=== PATIENT | male | born 1945 | race Caucasian/White ===

== ENCOUNTER 2017-11-13 00:58 | Inpatient (IN) | payer OTHER, MEDICARE ==
[~2017-11-13] VITALS: Ht 190.5 cm; Wt 93.2 kg
[~2017-11-13 00:58] MED LIST: ALB0.5UD IH; ALBU8.5H8 INH; BUDE10.2 INH; LEVO50TA8 PO; MIDO5TAB PO; POLY17PO2 PO; PRED15SO PO
[2017-11-13] MEDS ORDERED: ipratropium/albuterol 3ml nebule NEB ONE (01:00)
[2017-11-13] MEDS ORDERED: methylPREDNISolone sod succ 125mg/2ml vial IV ONE (01:00)
[2017-11-13] MEDS ORDERED: magnesium 2GM in 50ml NS 50 ML IV ONE (01:00)
[2017-11-13 01:45] LABS: BASOPHILS # (AUTO) 0.1 X10'3 (0-0.2); EOSINOPHILS # (AUTO) 0.1 X10'3 (0-0.9); EOSINOPHILS % (AUTO) 0.7 % (0-6); HEMATOCRIT 43.9 % (42.0-52.0); HEMOGLOBIN 15.1 g/dl (14.0-17.9); LYMPHOCYTES # (AUTO) 0.7 X10'3 (1.1-4.8); MEAN CORPUSCULAR HEMOGLOBIN 33.1 PG (27.0-31.0); MEAN CORPUSCULAR HGB CONC 34.3 % (33.0-36.5); MEAN CORPUSCULAR VOLUME 96.4 FL (78-98); MEAN PLATELET VOLUME 9.9 FL (7.4-10.4); MONOCYTES # (AUTO) 0.2 X10'3 (0-0.9); MONOCYTES % (AUTO) 1.9 % (2-12); NEUTROPHILS # (AUTO) 8.9 X10'3 (1.8-7.7); NEUTROPHILS % (AUTO) 89.4 % (42-75); PLATELET COUNT 244 X10'3 (140-440); RED BLOOD COUNT 4.55 X10'6 (4.70-6.10); RED CELL DISTRIBUTION WIDTH 12.6 % (11.5-14.5)
[2017-11-13 01:57] LABS: PARTIAL THROMBOPLASTIN TIME 23 SECONDS (22-32); PROTHROMBIN TIME 9.9 SECONDS (9.0-12.0)
[2017-11-13 01:59] LABS: ALBUMIN 4.3 G/DL (3.4-5.0); ANION GAP 7 (8-16); BILIRUBIN,TOTAL 0.3 MG/DL (0.1-1.0); BLOOD UREA NITROGEN 23 MG/DL (7-18); CALCIUM 9.8 MG/DL (8.5-10.1); CHLORIDE 96 MMOL/L (99-107); CREATININE 0.96 MG/DL (0.60-1.10); GLUCOSE 79 MG/DL (70-104); MAGNESIUM 1.9 MG/DL (1.5-2.4); POTASSIUM 4.3 MMOL/L (3.5-5.1); SODIUM 138 MMOL/L (135-145); TOTAL CARBON DIOXIDE 34.9 MMOL/L (24-32); TOTAL PROTEIN 8.3 G/DL (6.4-8.2); eGFR 77 ML/MIN
[2017-11-13 02:00] LABS: ALANINE AMINOTRANSFERASE 47 U/L (12-78); ALBUMIN/GLOBULIN RATIO 1.1 (1.1-1.5); ALKALINE PHOSPHATASE 88 IU/L (46-116); ASPARTATE AMINO TRANSFERASE 33 U/L (10-37)
[2017-11-13 03:22] LABS: CLARITY,URINE CLEAR (Clear); COLOR,URINE YELLOW (Yellow); GLUCOSE, URINE NEGATIVE (Neg); KETONES,URINE NEGATIVE (Neg); LEUKOCYTE ESTERASE ,URINE NEGATIVE (Neg); NITRITES, URINE NEGATIVE (Neg); OCCULT BLOOD,URINE SMALL (Neg); PROTEIN,URINE NEGATIVE (Neg); UROBILINOGEN,URINE 0.2 E.U/dL (0.2-1.0)
[2017-11-13 03:23] LABS: UA COLLECTION TYPE CLN CATCH MIDSTREAM
[2017-11-13 03:39] LABS: BACTERIA,URINE NONE SEEN /HPF (Neg); MUCUS STRANDS NONE SEEN /LPF (Neg); RBC,URINE 0-2 /HPF (0-2); SQUAMOUS EPITHELIAL CELL,UR NONE SEEN /LPF (FEW); WBC,URINE NONE SEEN /HPF (0-4)
[2017-11-13] MEDS ORDERED: ondansetron/PF 4mg/2ml inj IV PRN (04:10)
[2017-11-13] MEDS ORDERED: acetaminophen 325mg tablet PO PRN ×2 (04:10)
[2017-11-13] MEDS ORDERED: HYDROcodone/acetaminophen 5mg/325mg tablet PO PRN (04:10)
[2017-11-13] MEDS ORDERED: magnesium hydroxide 30ml (MOM) UD suspension PO PRN (04:10)
[2017-11-13] MEDS ORDERED: metoclopramide 5 mg/ml inj IV PRN (04:10)
[2017-11-13] MEDS ORDERED: acetaminophen 650mg rectal suppository RC PRN (04:10)
[2017-11-13] MEDS ORDERED: morphine 2 MG/ML inj. syringe IV PRN ×2 (04:10)
[2017-11-13] MEDS ORDERED: HYDROcodone/acetaminophen 10/325mg tab PO PRN (04:10)
[2017-11-13] MEDS ORDERED: bisacodyl 10mg suppository rectal RC PRN (04:10)
[2017-11-13] MEDS ORDERED: mag hydrox/Alum hydrox/simeth 30ml oral suspension PO PRN (04:10)
[2017-11-13] MEDS ORDERED: HYDROmorphone inj. 0.5 MG/0.5 ML DISP.SYRIN IV PRN (04:10)
[2017-11-13] MEDS ORDERED: diphenhydrAMINE 50 mg/ml inj IV PRN (04:10)
[2017-11-13] MEDS ORDERED: diphenhydrAMINE 25mg capsule PO PRN (04:10)
[2017-11-13 04:59] LABS: PHOSPHORUS 3.6 MG/DL (2.3-4.5)
[2017-11-13] MEDS: normal saline 1000ml 1,000 ML IV SCH ×2 (05:59→15:45)
[2017-11-13] MEDS: clindamycin 600mg/D5W 50ml 50 ML IV SCH ×2 (06:02→15:45)
[2017-11-13] MEDS: levoFLOXACIN 750MG TABLET PO SCH (06:02)
[2017-11-13] MEDS ORDERED: lactobacillus rhamnosus 10,000 MMU CELLS/CAPSULE PO SCH (07:30)
[2017-11-13] MEDS ORDERED: pantoprazole 40mg Tablet.DR PO SCH (07:30)
[2017-11-13] MEDS ORDERED: levoFLOXACIN-Levaquin 750MG/D5 150 ML IV SCH (08:00)
[2017-11-13] MEDS ORDERED: docusate sod 100mg capsule PO SCH (08:00)
[2017-11-13] MEDS: docusate sodium 100mg/10ml UD cup PO SCH ×2 (08:00→20:00)
[2017-11-13] MEDS ORDERED: clindamycin-Cleocin 900mg/D5W 50 ML IV SCH (08:00)
[2017-11-13 08:05] VITALS: BP 100/62
[2017-11-13 10:00] VITALS: BP 84/51
[2017-11-13] MEDS: heparin, porcine 5000 units/ml vial SQ SCH ×2 (10:26→20:27)
[2017-11-13] MEDS: methylPREDNISolone sod succ 125mg/2ml vial IV SCH ×2 (10:27→20:26)
[2017-11-13] MEDS ORDERED: ASPI-257 (10:32)
[2017-11-13] MEDS ORDERED: albuterol 2.5 MG/3 ML nebule NEB PRN (16:35)
[2017-11-13] MEDS ORDERED: albuterol 2.5 MG/3 ML nebule ONE (16:36)
[2017-11-13 18:00] VITALS: BP 94/53
[2017-11-13] MEDS ORDERED: midodrine tablet 2.5 MG TABLET PEG SCH (19:00)
[2017-11-13] MEDS: lactobacillus rhamnosus 10,000 MMU CELLS/CAPSULE PO SCH (20:25)
[2017-11-13] MEDS ORDERED: temazepam 15mg capsule PO PRN (21:00)
[2017-11-13 22:00] VITALS: BP 151/85
[2017-11-14] MEDS ORDERED: midodrine 5mg tablet PO SCH
[2017-11-14] MEDS: clindamycin 600mg/D5W 50ml 50 ML IV SCH ×2 (00:05→08:36)
[2017-11-14] MEDS: normal saline 1000ml 1,000 ML IV SCH ×3 (00:07→13:35)
[2017-11-14 05:00] VITALS: BP 142/86
[2017-11-14 05:22] LABS: BASOPHILS % (AUTO) 0 % (0-1); EOSINOPHILS # (AUTO) 0.2 X10'3 (0-0.9); EOSINOPHILS % (AUTO) 1.2 % (0-6); HEMATOCRIT 36.3 % (42.0-52.0); HEMOGLOBIN 12.5 g/dl (14.0-17.9); LYMPHOCYTES # (AUTO) 0.7 X10'3 (1.1-4.8); MEAN CORPUSCULAR HEMOGLOBIN 33.5 PG (27.0-31.0); MEAN CORPUSCULAR HGB CONC 34.5 % (33.0-36.5); MEAN CORPUSCULAR VOLUME 97.1 FL (78-98); MEAN PLATELET VOLUME 9.6 FL (7.4-10.4); MONOCYTES # (AUTO) 0.3 X10'3 (0-0.9); MONOCYTES % (AUTO) 1.5 % (2-12); NEUTROPHILS # (AUTO) 15.2 X10'3 (1.8-7.7); NEUTROPHILS % (AUTO) 93.3 % (42-75); PLATELET COUNT 216 X10'3 (140-440); RED BLOOD COUNT 3.73 X10'6 (4.70-6.10); RED CELL DISTRIBUTION WIDTH 12.8 % (11.5-14.5); WHITE BLOOD COUNT 16.3 X10'3 (4.5-11.0)
[2017-11-14 06:44] LABS: ALANINE AMINOTRANSFERASE 36 U/L (12-78); ALBUMIN 3.4 G/DL (3.4-5.0); ALBUMIN/GLOBULIN RATIO 0.9 (1.1-1.5); ALKALINE PHOSPHATASE 65 IU/L (46-116); ANION GAP 7 (8-16); ASPARTATE AMINO TRANSFERASE 25 U/L (10-37); BILIRUBIN,TOTAL 0.3 MG/DL (0.1-1.0); BLOOD UREA NITROGEN 28 MG/DL (7-18); BUN/CREATININE RATIO 28.6 (5.4-32.0); CHLORIDE 99 MMOL/L (99-107); CREATININE 0.98 MG/DL (0.60-1.10); GLUCOSE 129 MG/DL (70-104); MAGNESIUM 2.2 MG/DL (1.5-2.4); PHOSPHORUS 3.1 MG/DL (2.3-4.5); POTASSIUM 4.7 MMOL/L (3.5-5.1); SODIUM 138 MMOL/L (135-145); TOTAL CARBON DIOXIDE 31.9 MMOL/L (24-32); eGFR 75 ML/MIN
[2017-11-14] MEDS: docusate sodium 100mg/10ml UD cup PO SCH ×2 (08:00→19:53)
[2017-11-14] MEDS: levoTHYROXINE 25mcg tablet PO SCH (08:31)
[2017-11-14] MEDS: methylPREDNISolone sod succ 125mg/2ml vial IV SCH (08:32)
[2017-11-14] MEDS: midodrine 5mg tablet PEG SCH ×2 (08:32→19:43)
[2017-11-14] MEDS: lactobacillus rhamnosus 10,000 MMU CELLS/CAPSULE PO SCH ×2 (08:32→19:43)
[2017-11-14] MEDS: pantoprazole 40 MG vial IV SCH (08:38)
[2017-11-14] MEDS: heparin, porcine 5000 units/ml vial SQ SCH ×2 (08:39→19:47)
[2017-11-14 10:00] VITALS: BP 124/69
[2017-11-14] MEDS ORDERED: midodrine 5mg tablet PO ONE (13:20)
[2017-11-14] MEDS: levoFLOXACIN 750MG TABLET PO SCH (13:21)
[2017-11-14 18:00] VITALS: BP 143/85
[2017-11-14 22:00] VITALS: BP 154/90
[2017-11-15 05:24] LABS: BASOPHILS % (AUTO) 0 % (0-1); EOSINOPHILS % (AUTO) 0 % (0-6); HEMATOCRIT 34.3 % (42.0-52.0); HEMOGLOBIN 11.9 g/dl (14.0-17.9); LYMPHOCYTES # (AUTO) 0.6 X10'3 (1.1-4.8); LYMPHOCYTES % (AUTO) 3.6 % (21-51); MEAN CORPUSCULAR HEMOGLOBIN 33.4 PG (27.0-31.0); MEAN CORPUSCULAR HGB CONC 34.6 % (33.0-36.5); MEAN CORPUSCULAR VOLUME 96.6 FL (78-98); MEAN PLATELET VOLUME 9.8 FL (7.4-10.4); MONOCYTES # (AUTO) 0.7 X10'3 (0-0.9); MONOCYTES % (AUTO) 4.2 % (2-12); NEUTROPHILS # (AUTO) 15.7 X10'3 (1.8-7.7); NEUTROPHILS % (AUTO) 92.2 % (42-75); PLATELET COUNT 194 X10'3 (140-440); RED BLOOD COUNT 3.55 X10'6 (4.70-6.10); RED CELL DISTRIBUTION WIDTH 12.9 % (11.5-14.5)
[2017-11-15 06:00] VITALS: BP 149/85
[2017-11-15 06:03] LABS: ALANINE AMINOTRANSFERASE 35 U/L (12-78); ALBUMIN/GLOBULIN RATIO 0.9 (1.1-1.5); ALKALINE PHOSPHATASE 61 IU/L (46-116); ANION GAP 4 (8-16); ASPARTATE AMINO TRANSFERASE 27 U/L (10-37); BILIRUBIN,TOTAL 0.2 MG/DL (0.1-1.0); BLOOD UREA NITROGEN 28 MG/DL (7-18); BUN/CREATININE RATIO 30.4 (5.4-32.0); CALCIUM 9.1 MG/DL (8.5-10.1); CHLORIDE 103 MMOL/L (99-107); CREATININE 0.92 MG/DL (0.60-1.10); GLUCOSE 109 MG/DL (70-104); POTASSIUM 4.8 MMOL/L (3.5-5.1); SODIUM 141 MMOL/L (135-145); TOTAL CARBON DIOXIDE 33.6 MMOL/L (24-32); TOTAL PROTEIN 6.4 G/DL (6.4-8.2); eGFR 81 ML/MIN
[2017-11-15] MEDS: docusate sodium 100mg/10ml UD cup PO SCH ×2 (08:00→20:00)
[2017-11-15] MEDS ORDERED: prednisoLONE 15mg/5ml oral solution 5ml cup PO SCH (08:00)
[2017-11-15] MEDS: midodrine 5mg tablet PEG SCH ×3 (08:17→17:14)
[2017-11-15] MEDS: levoFLOXACIN 750MG TABLET PO SCH (08:18)
[2017-11-15] MEDS: lactobacillus rhamnosus 10,000 MMU CELLS/CAPSULE PO SCH ×2 (08:18→19:00)
[2017-11-15] MEDS: heparin, porcine 5000 units/ml vial SQ SCH (08:18)
[2017-11-15] MEDS: pantoprazole 40 MG vial IV SCH (08:18)
[2017-11-15] MEDS: levoTHYROXINE 25mcg tablet PO SCH (08:18)
[2017-11-15] MEDS: normal saline 1000ml 1,000 ML IV SCH (08:21)
[2017-11-15 10:00] VITALS: BP 134/85
[2017-11-15 19:00] VITALS: BP 170/104
[2017-11-15] MEDS ORDERED: LEVO750T21 PO (19:49)
== END 2017-11-15 20:30 | disposition home or self-care (01) | DRG 177 ==
LOC: ER 00:58 → ED HOLD 04:07 → ORTHO 4S 08:06
PROVIDERS: ADMIT Family Medicine; ATTEND Internal Medicine
DX: J69.0 Pneumonitis due to inhalation of food and vomit (principal); J96.21 Acute and chronic respiratory failure with hypoxia; I95.9 Hypotension, unspecified; Z99.81 Dependence on supplemental oxygen; R13.10 Dysphagia, unspecified; Z93.1 Gastrostomy status; J44.1 Chronic obstructive pulmonary disease with (acute) exacerbation; E86.0 Dehydration; E03.9 Hypothyroidism, unspecified; Z79.51 Long term (current) use of inhaled steroids; Z79.82 Long term (current) use of aspirin; Z79.899 Other long term (current) drug therapy; Z85.01 Personal history of malignant neoplasm of esophagus; Z87.891 Personal history of nicotine dependence; Z80.9 Family history of malignant neoplasm, unspecified; Z81.8 Family history of other mental and behavioral disorders; Z82.49 Family history of ischemic heart disease and other diseases of the circulatory system
CPT/HCPCS: 36415; 71045; 80053; 81001; 83605; 83735; 83880; 84100; 84145; 85025; 85610; 85730; 87040; 87070; 93005; 94640; 94760; 96365; 96375; 99285; C9113; J1644; J2930; J3475; J3490; J7030; J7042; J7510

== ENCOUNTER 2018-03-18 08:14 | Inpatient (IN) | payer MEDICARE, OTHER ==
[~2018-03-18] VITALS: Ht 190.5 cm; Wt 92.5 kg
[~2018-03-18 08:14] MED LIST changes: +ASPI-257; +LEVO750T21 PO; -PRED15SO PO; +PRED15SO23 PO
[2018-03-18] MEDS ORDERED: morphine 4 MG/ML inj SYRINge IV ONE (08:35)
[2018-03-18] MEDS ORDERED: normal saline 1000ML IV soln IVB ONE (08:35)
[2018-03-18 08:43] LABS: BASOPHILS # (AUTO) 0.1 X10'3 (0-0.2); BASOPHILS % (AUTO) 0.8 % (0-1); EOSINOPHILS % (AUTO) 0.2 % (0-6); HEMATOCRIT 29.7 % (42.0-52.0); HEMOGLOBIN 10.1 g/dl (14.0-17.9); LYMPHOCYTES # (AUTO) 1.1 X10'3 (1.1-4.8); LYMPHOCYTES % (AUTO) 14.2 % (21-51); MEAN CORPUSCULAR HEMOGLOBIN 32.8 PG (27.0-31.0); MEAN CORPUSCULAR HGB CONC 33.9 % (33.0-36.5); MEAN CORPUSCULAR VOLUME 96.8 FL (78-98); MEAN PLATELET VOLUME 9.6 FL (7.4-10.4); MONOCYTES # (AUTO) 0.9 X10'3 (0-0.9); MONOCYTES % (AUTO) 11.2 % (2-12); NEUTROPHILS # (AUTO) 5.9 X10'3 (1.8-7.7); NEUTROPHILS % (AUTO) 73.6 % (42-75); PLATELET COUNT 199 X10'3 (140-440); RED BLOOD COUNT 3.07 X10'6 (4.70-6.10); RED CELL DISTRIBUTION WIDTH 13.6 % (11.5-14.5); WHITE BLOOD COUNT 8.1 X10'3 (4.5-11.0)
[2018-03-18 08:54] LABS: PARTIAL THROMBOPLASTIN TIME 25 SECONDS (22-32); PROTHROMBIN TIME 10.3 SECONDS (9.0-12.0)
[2018-03-18 08:59] LABS: ALANINE AMINOTRANSFERASE 31 U/L (12-78); ALBUMIN 2.9 G/DL (3.4-5.0); ALBUMIN/GLOBULIN RATIO 0.9 (1.1-1.5); ALKALINE PHOSPHATASE 63 IU/L (46-116); ANION GAP 4 (8-16); ASPARTATE AMINO TRANSFERASE 22 U/L (10-37); BILIRUBIN,TOTAL 0.2 MG/DL (0.1-1.0); BLOOD UREA NITROGEN 41 MG/DL (7-18); BUN/CREATININE RATIO 56.9 (5.4-32.0); CALCIUM 8.2 MG/DL (8.5-10.1); CHLORIDE 101 MMOL/L (99-107); CREATININE 0.72 MG/DL (0.60-1.10); GLUCOSE 92 MG/DL (70-104); POTASSIUM 4.3 MMOL/L (3.5-5.1); SODIUM 140 MMOL/L (135-145); TOTAL CARBON DIOXIDE 35.1 MMOL/L (24-32); TOTAL PROTEIN 6.1 G/DL (6.4-8.2); eGFR > 90 ML/MIN
[2018-03-18] MEDS ORDERED: levoFLOXACIN-Levaquin 750MG/D5 150 ML IV ONE (09:55)
[2018-03-18] MEDS ORDERED: NUTR250L26 PO (10:37)
[2018-03-18] MEDS ORDERED: iohexol 300mg/ml 100ml inj. ONE (11:04)
[2018-03-18] MEDS ORDERED: magnesium hydroxide 30ml (MOM) UD suspension PO PRN (11:10)
[2018-03-18] MEDS ORDERED: acetaminophen 325mg tablet PO PRN (11:10)
[2018-03-18] MEDS ORDERED: potassium Cl 40MEQ/NS 500ml 500 ML IV PRN ×2 (11:10)
[2018-03-18] MEDS ORDERED: mag hydrox/Alum hydrox/simeth 30ml oral suspension PO PRN (11:10)
[2018-03-18] MEDS ORDERED: magnesium 4gm in 100ml NS 100 ML IV PRN (11:10)
[2018-03-18] MEDS ORDERED: magnesium Cl slow-release 64mg tablet PO PRN (11:10)
[2018-03-18] MEDS ORDERED: ondansetron/PF 4mg/2ml inj IV PRN (11:10)
[2018-03-18] MEDS ORDERED: magnesium/D5W IVPB 50 ML IV PRN (11:10)
[2018-03-18] MEDS ORDERED: potassium Cl 20 mEq SR tablet PO PRN ×2 (11:10)
[2018-03-18] MEDS ORDERED: levoFLOXACIN-Levaquin 750MG/D5 150 ML IV SCH (11:15)
[2018-03-18] MEDS ORDERED: non-formulary drug (Albuterol Sulfate (Proair Hfa) 2 PUFFS) INH SCH (11:20)
[2018-03-18] MEDS ORDERED: albuterol 2.5 MG/3 ML nebule NEB PRN (11:20)
[2018-03-18] MEDS: K and/or MAG REPLACEMENT MC SCH (11:25)
[2018-03-18] MEDS ORDERED: midodrine 5mg tablet PO ONE (11:45)
[2018-03-18] MEDS: prednisoLONE 15mg/5ml oral solution 5ml cup PO SCH (11:58)
[2018-03-18] MEDS: normal saline 1000ml 1,000 ML IV SCH ×2 (12:21→22:06)
[2018-03-18 13:00] VITALS: BP 125/84
[2018-03-18] MEDS: metroNIDAZOLE-Flagyl 500mg/NS 100 ML IV SCH ×3 (14:08→23:53)
[2018-03-18] MEDS: albuterol 2.5 MG/3 ML nebule NEB SCH ×2 (15:04→19:28)
[2018-03-18] MEDS: midodrine 5mg tablet PO SCH ×2 (16:17→23:53)
[2018-03-18] MEDS: budesonide 0.5mg/2ml UD nebule IH SCH (19:31)
[2018-03-18] MEDS: heparin, porcine 5000 units/ml vial SQ SCH (19:51)
[2018-03-18 20:00] VITALS: BP_SYST 128; BP_SYST 129; BP_SYST 84; BP_SYST 96; BP_DIAS 46; BP_DIAS 60; BP_DIAS 70; BP_DIAS 77
[2018-03-19] VITALS (7 sets, daily range): BP systolic 64–133; BP diastolic 31–87
[2018-03-19 04:32] LABS: BASOPHILS # (AUTO) 0.1 X10'3 (0-0.2); BASOPHILS % (AUTO) 0.7 % (0-1); EOSINOPHILS # (AUTO) 0.1 X10'3 (0-0.9); HEMATOCRIT 23.2 % (42.0-52.0); HEMOGLOBIN 7.9 g/dl (14.0-17.9); LYMPHOCYTES % (AUTO) 12.9 % (21-51); MEAN CORPUSCULAR HEMOGLOBIN 32.9 PG (27.0-31.0); MEAN CORPUSCULAR HGB CONC 33.9 % (33.0-36.5); MEAN CORPUSCULAR VOLUME 97.1 FL (78-98); MEAN PLATELET VOLUME 9.4 FL (7.4-10.4); MONOCYTES # (AUTO) 0.7 X10'3 (0-0.9); NEUTROPHILS # (AUTO) 5.6 X10'3 (1.8-7.7); NEUTROPHILS % (AUTO) 75.4 % (42-75); PLATELET COUNT 186 X10'3 (140-440); RED BLOOD COUNT 2.39 X10'6 (4.70-6.10); RED CELL DISTRIBUTION WIDTH 13.8 % (11.5-14.5); WHITE BLOOD COUNT 7.4 X10'3 (4.5-11.0)
[2018-03-19 04:52] LABS: ANION GAP 1 (8-16); BILIRUBIN,TOTAL 0.1 MG/DL (0.1-1.0); BLOOD UREA NITROGEN 34 MG/DL (7-18); BUN/CREATININE RATIO 50.7 (5.4-32.0); CALCIUM 8.3 MG/DL (8.5-10.1); CHLORIDE 100 MMOL/L (99-107); CREATININE 0.67 MG/DL (0.60-1.10); GLUCOSE 98 MG/DL (70-104); MAGNESIUM 1.8 MG/DL (1.5-2.4); POTASSIUM 4.4 MMOL/L (3.5-5.1); SODIUM 136 MMOL/L (135-145); TOTAL CARBON DIOXIDE 34.7 MMOL/L (24-32); TOTAL PROTEIN 5.5 G/DL (6.4-8.2); eGFR > 90 ML/MIN
[2018-03-19 04:53] LABS: ALANINE AMINOTRANSFERASE 29 U/L (12-78); ALBUMIN 2.6 G/DL (3.4-5.0); ALBUMIN/GLOBULIN RATIO 0.9 (1.1-1.5); ALKALINE PHOSPHATASE 60 IU/L (46-116); ASPARTATE AMINO TRANSFERASE 18 U/L (10-37); PREALBUMIN 19.2 MG/DL (19-36)
[2018-03-19] MEDS: budesonide 0.5mg/2ml UD nebule IH SCH ×2 (07:23→19:59)
[2018-03-19] MEDS: albuterol 2.5 MG/3 ML nebule NEB SCH ×4 (07:24→19:59)
[2018-03-19] MEDS: midodrine 5mg tablet PO SCH ×3 (07:46→23:35)
[2018-03-19] MEDS: levoTHYROXINE 25mcg tablet PO SCH (07:46)
[2018-03-19] MEDS: metroNIDAZOLE-Flagyl 500mg/NS 100 ML IV SCH ×3 (07:50→23:35)
[2018-03-19] MEDS: heparin, porcine 5000 units/ml vial SQ SCH ×2 (07:59→19:48)
[2018-03-19] MEDS: K and/or MAG REPLACEMENT MC SCH (08:00)
[2018-03-19] MEDS: prednisoLONE 15mg/5ml oral solution 5ml cup PO SCH (08:04)
[2018-03-19] MEDS: levoFLOXACIN-Levaquin 750MG/D5 150 ML IV SCH (09:16)
[2018-03-19] MEDS: normal saline 1000ml 1,000 ML IV SCH (16:25)
[2018-03-20] VITALS (14 sets, daily range): BP systolic 63–139; BP diastolic 30–100
[2018-03-20 05:12] LABS: BASOPHILS # (AUTO) 0.1 X10'3 (0-0.2); BASOPHILS % (AUTO) 0.9 % (0-1); EOSINOPHILS % (AUTO) 0 % (0-6); LYMPHOCYTES # (AUTO) 1.3 X10'3 (1.1-4.8); LYMPHOCYTES % (AUTO) 18.1 % (21-51); MEAN CORPUSCULAR HEMOGLOBIN 32.5 PG (27.0-31.0); MEAN CORPUSCULAR HGB CONC 33.6 % (33.0-36.5); MEAN CORPUSCULAR VOLUME 96.8 FL (78-98); MEAN PLATELET VOLUME 9.4 FL (7.4-10.4); MONOCYTES # (AUTO) 0.7 X10'3 (0-0.9); MONOCYTES % (AUTO) 9.4 % (2-12); NEUTROPHILS # (AUTO) 5.2 X10'3 (1.8-7.7); NEUTROPHILS % (AUTO) 71.6 % (42-75); PLATELET COUNT 171 X10'3 (140-440); RED BLOOD COUNT 2.06 X10'6 (4.70-6.10); RED CELL DISTRIBUTION WIDTH 14.2 % (11.5-14.5); WHITE BLOOD COUNT 7.3 X10'3 (4.5-11.0)
[2018-03-20 05:38] LABS: HEMATOCRIT 19.9 % (42.0-52.0); HEMOGLOBIN 6.7 g/dl (14.0-17.9)
[2018-03-20 06:11] LABS: ALANINE AMINOTRANSFERASE 28 U/L (12-78); ALBUMIN 2.6 G/DL (3.4-5.0); ALKALINE PHOSPHATASE 58 IU/L (46-116); ANION GAP 2 (8-16); ASPARTATE AMINO TRANSFERASE 19 U/L (10-37); BILIRUBIN,TOTAL 0.1 MG/DL (0.1-1.0); BLOOD UREA NITROGEN 24 MG/DL (7-18); BUN/CREATININE RATIO 31.6 (5.4-32.0); CALCIUM 8.4 MG/DL (8.5-10.1); CHLORIDE 98 MMOL/L (99-107); CREATININE 0.76 MG/DL (0.60-1.10); GLUCOSE 89 MG/DL (70-104); MAGNESIUM 1.5 MG/DL (1.5-2.4); POTASSIUM 4.3 MMOL/L (3.5-5.1); SODIUM 136 MMOL/L (135-145); TOTAL CARBON DIOXIDE 35.6 MMOL/L (24-32); TOTAL PROTEIN 5.3 G/DL (6.4-8.2); eGFR > 90 ML/MIN
[2018-03-20] MEDS: budesonide 0.5mg/2ml UD nebule IH SCH ×2 (07:28→19:50)
[2018-03-20] MEDS: albuterol 2.5 MG/3 ML nebule NEB SCH ×4 (07:28→19:50)
[2018-03-20] MEDS: normal saline 1000ml 1,000 ML IV SCH ×2 (07:42→23:56)
[2018-03-20] MEDS: metroNIDAZOLE-Flagyl 500mg/NS 100 ML IV SCH ×3 (07:42→23:55)
[2018-03-20] MEDS: K and/or MAG REPLACEMENT MC SCH (08:00)
[2018-03-20] MEDS ORDERED: pantoprazole 40 MG vial IV SCH (08:00)
[2018-03-20] MEDS: heparin, porcine 5000 units/ml vial SQ SCH ×2 (08:00→19:25)
[2018-03-20] MEDS: levoTHYROXINE 25mcg tablet PO SCH (08:40)
[2018-03-20] MEDS: midodrine 5mg tablet PO SCH ×3 (08:41→23:55)
[2018-03-20] MEDS: prednisoLONE 15mg/5ml oral solution 5ml cup PO SCH (08:43)
[2018-03-20] MEDS: levoFLOXACIN-Levaquin 750MG/D5 150 ML IV SCH (08:56)
[2018-03-20 10:08] LABS: OCCULT BLOOD STOOL POSITIVE (Neg)
[2018-03-20] MEDS: pantoprazole 40MG/NS 100ML BAG 100 ML IV SCH ×3 (11:39→20:31)
[2018-03-20 13:35] LABS: BASOPHILS % (AUTO) 0.5 % (0-1); EOSINOPHILS % (AUTO) 0 % (0-6); LYMPHOCYTES # (AUTO) 0.6 X10'3 (1.1-4.8); LYMPHOCYTES % (AUTO) 7.5 % (21-51); MEAN CORPUSCULAR HEMOGLOBIN 32.8 PG (27.0-31.0); MEAN CORPUSCULAR HGB CONC 33.7 % (33.0-36.5); MEAN CORPUSCULAR VOLUME 97.4 FL (78-98); MEAN PLATELET VOLUME 9.3 FL (7.4-10.4); MONOCYTES # (AUTO) 0.7 X10'3 (0-0.9); MONOCYTES % (AUTO) 9.4 % (2-12); NEUTROPHILS # (AUTO) 6.2 X10'3 (1.8-7.7); NEUTROPHILS % (AUTO) 82.6 % (42-75); PLATELET COUNT 184 X10'3 (140-440); RED CELL DISTRIBUTION WIDTH 14.2 % (11.5-14.5); WHITE BLOOD COUNT 7.5 X10'3 (4.5-11.0)
[2018-03-20 13:40] LABS: HEMATOCRIT 20.5 % (42.0-52.0); HEMOGLOBIN 6.9 g/dl (14.0-17.9)
[2018-03-20] MEDS: lactobacillus rhamnosus 10,000 MMU CELLS/CAPSULE PO SCH (19:23)
[2018-03-20 21:19] LABS: BASOPHILS % (AUTO) 0.3 % (0-1); EOSINOPHILS % (AUTO) 0 % (0-6); HEMATOCRIT 25.4 % (42.0-52.0); HEMOGLOBIN 8.8 g/dl (14.0-17.9); LYMPHOCYTES # (AUTO) 0.8 X10'3 (1.1-4.8); LYMPHOCYTES % (AUTO) 10.7 % (21-51); MEAN CORPUSCULAR HEMOGLOBIN 32.7 PG (27.0-31.0); MEAN CORPUSCULAR HGB CONC 34.5 % (33.0-36.5); MEAN PLATELET VOLUME 9.2 FL (7.4-10.4); MONOCYTES # (AUTO) 0.6 X10'3 (0-0.9); MONOCYTES % (AUTO) 8.1 % (2-12); NEUTROPHILS # (AUTO) 6.1 X10'3 (1.8-7.7); NEUTROPHILS % (AUTO) 80.9 % (42-75); PLATELET COUNT 171 X10'3 (140-440); RED BLOOD COUNT 2.68 X10'6 (4.70-6.10); RED CELL DISTRIBUTION WIDTH 14.1 % (11.5-14.5); WHITE BLOOD COUNT 7.6 X10'3 (4.5-11.0)
[2018-03-21] VITALS (16 sets, daily range): BP systolic 79–140; BP diastolic 46–88
[2018-03-21] MEDS: pantoprazole 40MG/NS 100ML BAG 100 ML IV SCH ×5 (01:43→21:41)
[2018-03-21 05:23] LABS: BASOPHILS % (AUTO) 0.7 % (0-1); EOSINOPHILS % (AUTO) 0 % (0-6); HEMATOCRIT 23.5 % (42.0-52.0); LYMPHOCYTES # (AUTO) 0.8 X10'3 (1.1-4.8); LYMPHOCYTES % (AUTO) 14.4 % (21-51); MEAN CORPUSCULAR HEMOGLOBIN 32.5 PG (27.0-31.0); MEAN CORPUSCULAR HGB CONC 34.3 % (33.0-36.5); MEAN CORPUSCULAR VOLUME 94.9 FL (78-98); MEAN PLATELET VOLUME 9.3 FL (7.4-10.4); MONOCYTES # (AUTO) 0.6 X10'3 (0-0.9); MONOCYTES % (AUTO) 10.7 % (2-12); NEUTROPHILS # (AUTO) 4.2 X10'3 (1.8-7.7); NEUTROPHILS % (AUTO) 74.2 % (42-75); PLATELET COUNT 154 X10'3 (140-440); RED BLOOD COUNT 2.47 X10'6 (4.70-6.10); RED CELL DISTRIBUTION WIDTH 14.9 % (11.5-14.5); WHITE BLOOD COUNT 5.6 X10'3 (4.5-11.0)
[2018-03-21 05:50] LABS: ALANINE AMINOTRANSFERASE 24 U/L (12-78); ALBUMIN 2.4 G/DL (3.4-5.0); ALKALINE PHOSPHATASE 54 IU/L (46-116); ANION GAP 1 (8-16); ASPARTATE AMINO TRANSFERASE 18 U/L (10-37); BILIRUBIN,TOTAL 0.2 MG/DL (0.1-1.0); BLOOD UREA NITROGEN 18 MG/DL (7-18); BUN/CREATININE RATIO 21.7 (5.4-32.0); CHLORIDE 99 MMOL/L (99-107); CREATININE 0.83 MG/DL (0.60-1.10); GLUCOSE 85 MG/DL (70-104); MAGNESIUM 1.7 MG/DL (1.5-2.4); POTASSIUM 4.3 MMOL/L (3.5-5.1); SODIUM 136 MMOL/L (135-145); TOTAL CARBON DIOXIDE 35.9 MMOL/L (24-32); TOTAL PROTEIN 4.9 G/DL (6.4-8.2); eGFR > 90 ML/MIN
[2018-03-21 05:58] LABS: CALCIUM 8.3 MG/DL (8.5-10.1)
[2018-03-21] MEDS: heparin, porcine 5000 units/ml vial SQ SCH ×2 (06:20→20:00)
[2018-03-21] MEDS: K and/or MAG REPLACEMENT MC SCH (07:24)
[2018-03-21] MEDS: normal saline 1000ml 1,000 ML IV SCH (07:26)
[2018-03-21] MEDS: metroNIDAZOLE-Flagyl 500mg/NS 100 ML IV SCH (07:29)
[2018-03-21] MEDS: budesonide 0.5mg/2ml UD nebule IH SCH ×2 (07:54→19:46)
[2018-03-21] MEDS: albuterol 2.5 MG/3 ML nebule NEB SCH ×4 (07:54→19:46)
[2018-03-21] MEDS: midodrine 5mg tablet PO SCH ×3 (08:00→23:41)
[2018-03-21] MEDS: lactobacillus rhamnosus 10,000 MMU CELLS/CAPSULE PO SCH ×2 (08:00→20:01)
[2018-03-21] MEDS ORDERED: MIDAZolam 5mg/5ml vial ONE (08:30)
[2018-03-21] MEDS ORDERED: LIDOcaine Viscous 15ml cup ONE (08:30)
[2018-03-21] MEDS ORDERED: fentaNYL/PF 50MCG/1 ML 2ML syringe ONE (08:30)
[2018-03-21] MEDS ORDERED: epiNEPHrine 0.1mg/ml 10ml syringe ONE (09:33)
[2018-03-21] MEDS: prednisoLONE 15mg/5ml oral solution 5ml cup PO SCH (12:27)
[2018-03-21] MEDS: levoTHYROXINE 25mcg tablet PO SCH (12:28)
[2018-03-21] MEDS: levoFLOXACIN-Levaquin 750MG/D5 150 ML IV SCH (12:31)
[2018-03-21 14:04] LABS: BASOPHILS % (AUTO) 0.3 % (0-1); EOSINOPHILS % (AUTO) 0.2 % (0-6); HEMATOCRIT 25.8 % (42.0-52.0); HEMOGLOBIN 8.7 g/dl (14.0-17.9); LYMPHOCYTES # (AUTO) 0.5 X10'3 (1.1-4.8); LYMPHOCYTES % (AUTO) 7.3 % (21-51); MEAN CORPUSCULAR HEMOGLOBIN 32.6 PG (27.0-31.0); MEAN CORPUSCULAR HGB CONC 33.6 % (33.0-36.5); MEAN CORPUSCULAR VOLUME 96.9 FL (78-98); MEAN PLATELET VOLUME 9.2 FL (7.4-10.4); MONOCYTES # (AUTO) 0.6 X10'3 (0-0.9); MONOCYTES % (AUTO) 8.9 % (2-12); NEUTROPHILS # (AUTO) 5.6 X10'3 (1.8-7.7); NEUTROPHILS % (AUTO) 83.3 % (42-75); PLATELET COUNT 161 X10'3 (140-440); RED BLOOD COUNT 2.66 X10'6 (4.70-6.10); RED CELL DISTRIBUTION WIDTH 14.5 % (11.5-14.5); WHITE BLOOD COUNT 6.8 X10'3 (4.5-11.0)
[2018-03-21 22:18] LABS: BASOPHILS % (AUTO) 0.4 % (0-1); EOSINOPHILS % (AUTO) 0 % (0-6); HEMATOCRIT 26.7 % (42.0-52.0); LYMPHOCYTES # (AUTO) 0.6 X10'3 (1.1-4.8); LYMPHOCYTES % (AUTO) 9.7 % (21-51); MEAN CORPUSCULAR HEMOGLOBIN 32.3 PG (27.0-31.0); MEAN CORPUSCULAR HGB CONC 33.7 % (33.0-36.5); MEAN CORPUSCULAR VOLUME 95.8 FL (78-98); MEAN PLATELET VOLUME 9.4 FL (7.4-10.4); MONOCYTES # (AUTO) 0.3 X10'3 (0-0.9); MONOCYTES % (AUTO) 5.6 % (2-12); NEUTROPHILS # (AUTO) 5.2 X10'3 (1.8-7.7); NEUTROPHILS % (AUTO) 84.3 % (42-75); PLATELET COUNT 202 X10'3 (140-440); RED BLOOD COUNT 2.79 X10'6 (4.70-6.10); RED CELL DISTRIBUTION WIDTH 14.5 % (11.5-14.5); WHITE BLOOD COUNT 6.2 X10'3 (4.5-11.0)
[2018-03-22] MEDS: pantoprazole 40MG/NS 100ML BAG 100 ML IV SCH ×5 (01:00→23:04)
[2018-03-22] MEDS: normal saline 1000ml 1,000 ML IV SCH ×2 (01:29→15:21)
[2018-03-22 05:23] LABS: BASOPHILS % (AUTO) 0.3 % (0-1); EOSINOPHILS % (AUTO) 0.1 % (0-6); HEMATOCRIT 25.6 % (42.0-52.0); HEMOGLOBIN 8.6 g/dl (14.0-17.9); LYMPHOCYTES # (AUTO) 0.8 X10'3 (1.1-4.8); LYMPHOCYTES % (AUTO) 14.3 % (21-51); MEAN CORPUSCULAR HEMOGLOBIN 32.9 PG (27.0-31.0); MEAN CORPUSCULAR HGB CONC 33.8 % (33.0-36.5); MEAN CORPUSCULAR VOLUME 97.2 FL (78-98); MONOCYTES # (AUTO) 0.7 X10'3 (0-0.9); MONOCYTES % (AUTO) 11.2 % (2-12); NEUTROPHILS # (AUTO) 4.4 X10'3 (1.8-7.7); NEUTROPHILS % (AUTO) 74.1 % (42-75); PLATELET COUNT 194 X10'3 (140-440); RED BLOOD COUNT 2.63 X10'6 (4.70-6.10); RED CELL DISTRIBUTION WIDTH 14.4 % (11.5-14.5); WHITE BLOOD COUNT 5.9 X10'3 (4.5-11.0)
[2018-03-22 05:50] LABS: ALANINE AMINOTRANSFERASE 27 U/L (12-78); ALBUMIN 2.6 G/DL (3.4-5.0); ALKALINE PHOSPHATASE 55 IU/L (46-116); ANION GAP 4 (8-16); ASPARTATE AMINO TRANSFERASE 24 U/L (10-37); BILIRUBIN,TOTAL 0.2 MG/DL (0.1-1.0); BLOOD UREA NITROGEN 13 MG/DL (7-18); BUN/CREATININE RATIO 16.5 (5.4-32.0); CALCIUM 8.3 MG/DL (8.5-10.1); CHLORIDE 99 MMOL/L (99-107); CREATININE 0.79 MG/DL (0.60-1.10); GLUCOSE 86 MG/DL (70-104); MAGNESIUM 1.8 MG/DL (1.5-2.4); PREALBUMIN 19.4 MG/DL (19-36); SODIUM 137 MMOL/L (135-145); TOTAL CARBON DIOXIDE 33.7 MMOL/L (24-32); TOTAL PROTEIN 5.3 G/DL (6.4-8.2); eGFR > 90 ML/MIN
[2018-03-22] MEDS: K and/or MAG REPLACEMENT MC SCH (06:30)
[2018-03-22] MEDS: heparin, porcine 5000 units/ml vial SQ SCH ×2 (06:32→19:32)
[2018-03-22 06:39] VITALS: BP 96/64
[2018-03-22] MEDS: levoFLOXACIN-Levaquin 750MG/D5 150 ML IV SCH (07:08)
[2018-03-22] MEDS: lactobacillus rhamnosus 10,000 MMU CELLS/CAPSULE PO SCH ×2 (07:09→19:30)
[2018-03-22] MEDS: midodrine 5mg tablet PO SCH ×3 (07:09→19:30)
[2018-03-22] MEDS: prednisoLONE 15mg/5ml oral solution 5ml cup PO SCH (07:09)
[2018-03-22] MEDS: levoTHYROXINE 25mcg tablet PO SCH (07:09)
[2018-03-22] MEDS: albuterol 2.5 MG/3 ML nebule NEB SCH ×4 (08:22→19:00)
[2018-03-22] MEDS: budesonide 0.5mg/2ml UD nebule IH SCH ×2 (08:23→20:00)
[2018-03-22 10:08] VITALS: BP_SYST 65; BP_SYST 82; BP_SYST 96; BP_DIAS 40; BP_DIAS 50; BP_DIAS 62
[2018-03-22 11:44] VITALS: BP 92/57
[2018-03-22 13:12] LABS: BASOPHILS % (AUTO) 0.2 % (0-1); EOSINOPHILS % (AUTO) 0 % (0-6); HEMATOCRIT 28.4 % (42.0-52.0); HEMOGLOBIN 9.6 g/dl (14.0-17.9); LYMPHOCYTES # (AUTO) 0.9 X10'3 (1.1-4.8); LYMPHOCYTES % (AUTO) 12.3 % (21-51); MEAN CORPUSCULAR HEMOGLOBIN 32.7 PG (27.0-31.0); MEAN CORPUSCULAR HGB CONC 33.7 % (33.0-36.5); MEAN CORPUSCULAR VOLUME 97.1 FL (78-98); MEAN PLATELET VOLUME 8.7 FL (7.4-10.4); MONOCYTES # (AUTO) 0.5 X10'3 (0-0.9); MONOCYTES % (AUTO) 7.1 % (2-12); NEUTROPHILS # (AUTO) 5.5 X10'3 (1.8-7.7); NEUTROPHILS % (AUTO) 80.4 % (42-75); PLATELET COUNT 225 X10'3 (140-440); RED BLOOD COUNT 2.92 X10'6 (4.70-6.10); RED CELL DISTRIBUTION WIDTH 14.6 % (11.5-14.5); WHITE BLOOD COUNT 6.9 X10'3 (4.5-11.0)
[2018-03-22 19:30] VITALS: BP_SYST 105; BP_SYST 126; BP_SYST 92; BP_DIAS 56; BP_DIAS 68; BP_DIAS 80
[2018-03-22] MEDS: polyethylene glycol 3350 17gm powd pack PO SCH (21:20)
[2018-03-22 21:37] LABS: BASOPHILS % (AUTO) 0.4 % (0-1); EOSINOPHILS % (AUTO) 0 % (0-6); HEMATOCRIT 26.6 % (42.0-52.0); LYMPHOCYTES # (AUTO) 0.8 X10'3 (1.1-4.8); LYMPHOCYTES % (AUTO) 12.8 % (21-51); MEAN CORPUSCULAR HEMOGLOBIN 32.9 PG (27.0-31.0); MEAN CORPUSCULAR HGB CONC 33.9 % (33.0-36.5); MEAN CORPUSCULAR VOLUME 96.8 FL (78-98); MONOCYTES # (AUTO) 0.7 X10'3 (0-0.9); MONOCYTES % (AUTO) 11.7 % (2-12); NEUTROPHILS # (AUTO) 4.6 X10'3 (1.8-7.7); NEUTROPHILS % (AUTO) 75.1 % (42-75); PLATELET COUNT 220 X10'3 (140-440); RED BLOOD COUNT 2.75 X10'6 (4.70-6.10); RED CELL DISTRIBUTION WIDTH 14.5 % (11.5-14.5); WHITE BLOOD COUNT 6.2 X10'3 (4.5-11.0)
[2018-03-23] VITALS: BP 113/81
[2018-03-23] MEDS: pantoprazole 40MG/NS 100ML BAG 100 ML IV SCH ×5 (01:00→21:04)
[2018-03-23] MEDS: normal saline 1000ml 1,000 ML IV SCH ×2 (04:19→21:04)
[2018-03-23 05:46] LABS: BASOPHILS % (AUTO) 0.9 % (0-1); EOSINOPHILS % (AUTO) 0 % (0-6); HEMATOCRIT 26.2 % (42.0-52.0); HEMOGLOBIN 8.9 g/dl (14.0-17.9); LYMPHOCYTES # (AUTO) 0.9 X10'3 (1.1-4.8); LYMPHOCYTES % (AUTO) 16.6 % (21-51); MEAN CORPUSCULAR HEMOGLOBIN 32.8 PG (27.0-31.0); MEAN CORPUSCULAR HGB CONC 33.8 % (33.0-36.5); MONOCYTES # (AUTO) 0.6 X10'3 (0-0.9); MONOCYTES % (AUTO) 11.5 % (2-12); NEUTROPHILS # (AUTO) 3.8 X10'3 (1.8-7.7); PLATELET COUNT 209 X10'3 (140-440); RED CELL DISTRIBUTION WIDTH 14.4 % (11.5-14.5); WHITE BLOOD COUNT 5.3 X10'3 (4.5-11.0)
[2018-03-23 05:58] LABS: ALANINE AMINOTRANSFERASE 35 U/L (12-78); ALBUMIN 2.5 G/DL (3.4-5.0); ALBUMIN/GLOBULIN RATIO 0.9 (1.1-1.5); ALKALINE PHOSPHATASE 60 IU/L (46-116); ANION GAP 4 (8-16); ASPARTATE AMINO TRANSFERASE 33 U/L (10-37); BILIRUBIN,TOTAL 0.2 MG/DL (0.1-1.0); BLOOD UREA NITROGEN 15 MG/DL (7-18); BUN/CREATININE RATIO 17.6 (5.4-32.0); CALCIUM 8.1 MG/DL (8.5-10.1); CHLORIDE 99 MMOL/L (99-107); CREATININE 0.85 MG/DL (0.60-1.10); GLUCOSE 84 MG/DL (70-104); MAGNESIUM 1.6 MG/DL (1.5-2.4); SODIUM 136 MMOL/L (135-145); TOTAL CARBON DIOXIDE 33.2 MMOL/L (24-32); TOTAL PROTEIN 5.2 G/DL (6.4-8.2); eGFR 89 ML/MIN
[2018-03-23] MEDS: levoTHYROXINE 25mcg tablet PO SCH (07:00)
[2018-03-23 07:16] VITALS: BP 84/57
[2018-03-23] MEDS: budesonide 0.5mg/2ml UD nebule IH SCH ×2 (07:36→19:07)
[2018-03-23] MEDS: albuterol 2.5 MG/3 ML nebule NEB SCH ×4 (07:36→19:07)
[2018-03-23 08:00] VITALS: BP_SYST 53; BP_SYST 68; BP_SYST 84; BP_DIAS 30; BP_DIAS 41; BP_DIAS 57
[2018-03-23] MEDS: K and/or MAG REPLACEMENT MC SCH (08:00)
[2018-03-23] MEDS: midodrine 5mg tablet PO SCH ×3 (08:06→19:19)
[2018-03-23] MEDS: lactobacillus rhamnosus 10,000 MMU CELLS/CAPSULE PO SCH ×2 (08:06→19:18)
[2018-03-23] MEDS: docusate sodium 100mg/10ml UD cup PO SCH (08:07)
[2018-03-23] MEDS: levoFLOXACIN-Levaquin 750MG/D5 150 ML IV SCH (08:07)
[2018-03-23] MEDS: heparin, porcine 5000 units/ml vial SQ SCH ×2 (08:07→19:18)
[2018-03-23] MEDS: prednisoLONE 15mg/5ml oral solution 5ml cup PO SCH (08:07)
[2018-03-23 11:31] VITALS: BP 81/51
[2018-03-23 16:40] LABS: BASOPHILS % (AUTO) 0.1 % (0-1); EOSINOPHILS % (AUTO) 0 % (0-6); HEMATOCRIT 28.4 % (42.0-52.0); HEMOGLOBIN 9.6 g/dl (14.0-17.9); LYMPHOCYTES # (AUTO) 0.8 X10'3 (1.1-4.8); LYMPHOCYTES % (AUTO) 11.6 % (21-51); MEAN CORPUSCULAR HEMOGLOBIN 33.3 PG (27.0-31.0); MEAN CORPUSCULAR VOLUME 97.8 FL (78-98); MEAN PLATELET VOLUME 8.6 FL (7.4-10.4); MONOCYTES # (AUTO) 0.5 X10'3 (0-0.9); MONOCYTES % (AUTO) 7.5 % (2-12); NEUTROPHILS # (AUTO) 5.6 X10'3 (1.8-7.7); NEUTROPHILS % (AUTO) 80.8 % (42-75); PLATELET COUNT 237 X10'3 (140-440); RED CELL DISTRIBUTION WIDTH 14.6 % (11.5-14.5)
[2018-03-23] MEDS: polyethylene glycol 3350 17gm powd pack PO SCH (19:19)
[2018-03-23 20:00] VITALS: BP 125/79
[2018-03-24] VITALS: BP 82/51
[2018-03-24] MEDS: pantoprazole 40MG/NS 100ML BAG 100 ML IV SCH ×3 (01:31→10:53)
[2018-03-24 07:23] VITALS: BP 97/63
[2018-03-24] MEDS: albuterol 2.5 MG/3 ML nebule NEB SCH ×4 (07:51→20:31)
[2018-03-24] MEDS: budesonide 0.5mg/2ml UD nebule IH SCH ×2 (07:52→20:31)
[2018-03-24] MEDS: K and/or MAG REPLACEMENT MC SCH (08:00)
[2018-03-24] MEDS: prednisoLONE 15mg/5ml oral solution 5ml cup PO SCH (08:12)
[2018-03-24] MEDS: docusate sodium 100mg/10ml UD cup PO SCH (08:12)
[2018-03-24] MEDS: midodrine 5mg tablet PO SCH ×3 (08:12→19:20)
[2018-03-24] MEDS: lactobacillus rhamnosus 10,000 MMU CELLS/CAPSULE PO SCH ×2 (08:13→19:21)
[2018-03-24] MEDS: levoFLOXACIN-Levaquin 750MG/D5 150 ML IV SCH (08:13)
[2018-03-24] MEDS: heparin, porcine 5000 units/ml vial SQ SCH ×2 (08:13→19:21)
[2018-03-24] MEDS: levoTHYROXINE 25mcg tablet PO SCH (08:13)
[2018-03-24 09:28] LABS: BASOPHILS % (AUTO) 0.5 % (0-1); EOSINOPHILS % (AUTO) 0 % (0-6); HEMATOCRIT 27.2 % (42.0-52.0); HEMOGLOBIN 9.1 g/dl (14.0-17.9); LYMPHOCYTES # (AUTO) 0.9 X10'3 (1.1-4.8); LYMPHOCYTES % (AUTO) 16.5 % (21-51); MEAN CORPUSCULAR HEMOGLOBIN 32.9 PG (27.0-31.0); MEAN CORPUSCULAR HGB CONC 33.4 % (33.0-36.5); MEAN CORPUSCULAR VOLUME 98.6 FL (78-98); MEAN PLATELET VOLUME 9.6 FL (7.4-10.4); MONOCYTES # (AUTO) 0.6 X10'3 (0-0.9); MONOCYTES % (AUTO) 11.3 % (2-12); NEUTROPHILS # (AUTO) 3.9 X10'3 (1.8-7.7); NEUTROPHILS % (AUTO) 71.7 % (42-75); PLATELET COUNT 237 X10'3 (140-440); RED BLOOD COUNT 2.76 X10'6 (4.70-6.10); RED CELL DISTRIBUTION WIDTH 14.3 % (11.5-14.5); WHITE BLOOD COUNT 5.4 X10'3 (4.5-11.0)
[2018-03-24] MEDS: normal saline 1000ml 1,000 ML IV SCH (10:47)
[2018-03-24 11:30] VITALS: BP 85/46
[2018-03-24 11:45] VITALS: BP 110/85
[2018-03-24 19:00] VITALS: BP 118/71
[2018-03-24] MEDS: polyethylene glycol 3350 17gm powd pack PO SCH (19:21)
[2018-03-25] VITALS: BP 107/63
[2018-03-25 05:05] LABS: BASOPHILS % (AUTO) 0.9 % (0-1); EOSINOPHILS % (AUTO) 0 % (0-6); HEMATOCRIT 28.8 % (42.0-52.0); HEMOGLOBIN 9.9 g/dl (14.0-17.9); LYMPHOCYTES # (AUTO) 0.7 X10'3 (1.1-4.8); LYMPHOCYTES % (AUTO) 12.4 % (21-51); MEAN CORPUSCULAR HEMOGLOBIN 33.5 PG (27.0-31.0); MEAN CORPUSCULAR HGB CONC 34.3 % (33.0-36.5); MEAN CORPUSCULAR VOLUME 97.7 FL (78-98); MEAN PLATELET VOLUME 8.4 FL (7.4-10.4); MONOCYTES # (AUTO) 0.6 X10'3 (0-0.9); NEUTROPHILS # (AUTO) 4.2 X10'3 (1.8-7.7); NEUTROPHILS % (AUTO) 75.7 % (42-75); PLATELET COUNT 248 X10'3 (140-440); RED BLOOD COUNT 2.94 X10'6 (4.70-6.10); RED CELL DISTRIBUTION WIDTH 14.6 % (11.5-14.5); WHITE BLOOD COUNT 5.5 X10'3 (4.5-11.0)
[2018-03-25 05:26] LABS: MAGNESIUM 1.9 MG/DL (1.5-2.4); PREALBUMIN 20.2 MG/DL (19-36)
[2018-03-25 07:09] VITALS: BP 76/49
[2018-03-25 07:17] VITALS: BP 113/70
[2018-03-25] MEDS: albuterol 2.5 MG/3 ML nebule NEB SCH ×4 (07:40→20:16)
[2018-03-25] MEDS: budesonide 0.5mg/2ml UD nebule IH SCH ×2 (07:41→20:16)
[2018-03-25] MEDS: K and/or MAG REPLACEMENT MC SCH (07:53)
[2018-03-25] MEDS: levoTHYROXINE 25mcg tablet PO SCH (07:58)
[2018-03-25] MEDS: docusate sodium 100mg/10ml UD cup PO SCH (07:59)
[2018-03-25] MEDS: midodrine 5mg tablet PO SCH ×3 (07:59→17:23)
[2018-03-25] MEDS: lactobacillus rhamnosus 10,000 MMU CELLS/CAPSULE PO SCH ×2 (07:59→19:12)
[2018-03-25] MEDS: pantoprazole 40mg Tablet.DR PO SCH (07:59)
[2018-03-25] MEDS: prednisoLONE 15mg/5ml oral solution 5ml cup PO SCH (08:00)
[2018-03-25] MEDS: heparin, porcine 5000 units/ml vial SQ SCH ×2 (08:00→19:12)
[2018-03-25] MEDS: levoFLOXACIN 500mg tablet PO SCH (11:40)
[2018-03-25 11:46] VITALS: BP 107/64
[2018-03-25 16:51] LABS: BASOPHILS % (AUTO) 0.3 % (0-1); EOSINOPHILS % (AUTO) 0 % (0-6); HEMOGLOBIN 9.8 g/dl (14.0-17.9); LYMPHOCYTES # (AUTO) 1.1 X10'3 (1.1-4.8); MEAN CORPUSCULAR HEMOGLOBIN 32.9 PG (27.0-31.0); MEAN CORPUSCULAR HGB CONC 33.8 % (33.0-36.5); MEAN CORPUSCULAR VOLUME 97.2 FL (78-98); MEAN PLATELET VOLUME 8.5 FL (7.4-10.4); MONOCYTES # (AUTO) 0.6 X10'3 (0-0.9); MONOCYTES % (AUTO) 6.2 % (2-12); NEUTROPHILS # (AUTO) 7.4 X10'3 (1.8-7.7); NEUTROPHILS % (AUTO) 81.5 % (42-75); PLATELET COUNT 297 X10'3 (140-440); RED BLOOD COUNT 2.98 X10'6 (4.70-6.10); RED CELL DISTRIBUTION WIDTH 14.6 % (11.5-14.5); WHITE BLOOD COUNT 9.1 X10'3 (4.5-11.0)
[2018-03-25 18:00] VITALS: BP 134/83
[2018-03-25] MEDS: polyethylene glycol 3350 17gm powd pack PO SCH (20:31)
[2018-03-26] VITALS: BP 141/79
[2018-03-26 07:31] VITALS: BP 96/63
[2018-03-26] MEDS: K and/or MAG REPLACEMENT MC SCH (08:00)
[2018-03-26] MEDS: pantoprazole 40mg Tablet.DR PO SCH (08:11)
[2018-03-26] MEDS: levoTHYROXINE 25mcg tablet PO SCH (08:11)
[2018-03-26] MEDS: docusate sodium 100mg/10ml UD cup PO SCH (08:11)
[2018-03-26] MEDS: prednisoLONE 15mg/5ml oral solution 5ml cup PO SCH (08:12)
[2018-03-26] MEDS: lactobacillus rhamnosus 10,000 MMU CELLS/CAPSULE PO SCH (08:12)
[2018-03-26] MEDS: midodrine 5mg tablet PO SCH ×2 (08:12→12:24)
[2018-03-26] MEDS: heparin, porcine 5000 units/ml vial SQ SCH (08:14)
[2018-03-26] MEDS: albuterol 2.5 MG/3 ML nebule NEB SCH ×3 (08:36→13:41)
[2018-03-26] MEDS: budesonide 0.5mg/2ml UD nebule IH SCH (08:36)
[2018-03-26 11:33] VITALS: BP 93/59
[2018-03-26] MEDS: levoFLOXACIN 500mg tablet PO SCH (12:24)
== END 2018-03-26 14:47 | DRG 177 ==
LOC: ER 08:15 → ED HOLD 11:08 → SUR 3N 12:47
PROVIDERS: ADMIT Internal Medicine; ATTEND Family Medicine
PROC: 30233N1 Transfusion of Nonautologous Red Blood Cells into Peripheral Vein, Percutaneous Approach (ICD-10-PCS; 2018-03-20)
PROC: 3E0G8GC Introduction of Other Therapeutic Substance into Upper GI, Via Natural or Artificial Opening Endoscopic (ICD-10-PCS; principal; 2018-03-21)
PROC: 0D578ZZ Destruction of Stomach, Pylorus, Via Natural or Artificial Opening Endoscopic (ICD-10-PCS; 2018-03-21)
DX: J15.6 Pneumonia due to other Gram-negative bacteria (principal); K25.4 Chronic or unspecified gastric ulcer with hemorrhage; J44.0 Chronic obstructive pulmonary disease with (acute) lower respiratory infection; D62 Acute posthemorrhagic anemia; E03.9 Hypothyroidism, unspecified; E86.0 Dehydration; K21.9 Gastro-esophageal reflux disease without esophagitis; K22.8 Other specified diseases of esophagus; K29.60 Other gastritis without bleeding; R13.10 Dysphagia, unspecified; R29.6 Repeated falls; I95.1 Orthostatic hypotension; R19.5 Other fecal abnormalities; Z93.1 Gastrostomy status; Z90.49 Acquired absence of other specified parts of digestive tract; Z79.82 Long term (current) use of aspirin; Z85.118 Personal history of other malignant neoplasm of bronchus and lung; Z85.819 Personal history of malignant neoplasm of unspecified site of lip, oral cavity, and pharynx; Z86.73 Personal history of transient ischemic attack (TIA), and cerebral infarction without residual deficits; Z82.0 Family history of epilepsy and other diseases of the nervous system; Z82.49 Family history of ischemic heart disease and other diseases of the circulatory system
CPT/HCPCS: 36415; 43239; 70450; 70551; 71045; 71260; 73030; 74021; 80053; 82272; 82948; 83605; 83735; 84134; 84484; 85025; 85610; 85730; 86885; 86900; 86901; 86920; 87040; 87070; 88305; 88342; 93005; 93306; 93880; 94640; 94760; 96361; 96365; 96366; 96375; 97110; 97116; 97161; 97530; 99285; A4620; C9113; G0500; J0171; J1644; J1956; J2250; J2270; J2405; J3010; J3490; J7030; J7510; J7626; P9016; Q9967

== ENCOUNTER 2019-01-07 22:53 | Inpatient (IN) | payer MEDICARE, OTHER ==
[~2019-01-07] VITALS: Ht 190.5 cm; Wt 89.1 kg
[~2019-01-07 22:53] MED LIST changes: +AZIT200S47 GT; -LEVO750T21 PO; +NORepinephrine 1 mg/ml inj IV ONE; +NUTR250L26 PO; -POLY17PO2 PO; +POLY17PO36 PO; +PRED15SO24 GT; +etomidate 2mg/ml inj. ONE; +rocuronium 10mg/ml inj IV ONE
[2019-01-07] MEDS ORDERED: normal saline 1000ML IV soln IV ONE (23:00)
[2019-01-07] MEDS ORDERED: CefTRIAXone 2gm/D5W 50ml 50 ML IV ONE (23:00)
--- NOTE | 2019-01-07 23:04 | NUR ---
2304 10MG ETOMIDATE ADMINISTERED 2305 50MG JULIAN ADMINISTERED 2306 POSITIVE COLOR CHANGE 24 AT THE TEETH 8.0 TUBE
[2019-01-07] MEDS ORDERED: propofol 1000mg/100ml bottle 100 ML IV ONE (23:13)
[2019-01-07] MEDS ORDERED: propofol 1000mg/100ml bottle 100 ML IV PRN (23:16)
[2019-01-07] MEDS ORDERED: vancomycin/NS 1 GM ADD-VANTAGE 250 ML IV ONE (23:20)
[2019-01-07] MEDS ORDERED: azithromycin/NS 500mg/250ml 250 ML IV ONE (23:20)
[2019-01-07 23:24] LABS: BASOPHILS % (AUTO) 0.3 % (0-1); EOSINOPHILS % (AUTO) 0.1 % (0-6); HEMATOCRIT 43.1 % (42.0-52.0); HEMOGLOBIN 14.5 g/dl (14.0-17.9); LYMPHOCYTES # (AUTO) 1.5 X10'3 (1.1-4.8); LYMPHOCYTES % (AUTO) 14.9 % (21-51); MEAN CORPUSCULAR HEMOGLOBIN 33.1 PG (27.0-31.0); MEAN CORPUSCULAR HGB CONC 33.7 g/dL (33.0-36.5); MEAN CORPUSCULAR VOLUME 98.3 FL (78-98); MEAN PLATELET VOLUME 9.3 FL (7.4-10.4); MONOCYTES # (AUTO) 0.4 X10'3 (0-0.9); MONOCYTES % (AUTO) 4.4 % (2-12); NEUTROPHILS # (AUTO) 7.9 X10'3 (1.8-7.7); NEUTROPHILS % (AUTO) 80.3 % (42-75); PLATELET COUNT 258 X10'3 (140-440); RED BLOOD COUNT 4.39 X10'6 (4.70-6.10); RED CELL DISTRIBUTION WIDTH 13.6 % (11.5-14.5); WHITE BLOOD COUNT 9.8 X10'3 (4.5-11.0)
[2019-01-07 23:29] LABS: PARTIAL THROMBOPLASTIN TIME 28 SECONDS (22-32)
[2019-01-07] MEDS ORDERED: nitroGLYCERIN 0.4mg/hour patch TD ONE (23:30)
[2019-01-07 23:31] LABS: ALANINE AMINOTRANSFERASE 61 U/L (12-78); ALBUMIN/GLOBULIN RATIO 0.9 (1.1-1.5); ALKALINE PHOSPHATASE 102 IU/L (46-116); ANION GAP 8 (8-16); ASPARTATE AMINO TRANSFERASE 38 U/L (10-37); BILIRUBIN,TOTAL 0.3 MG/DL (0.1-1.0); BLOOD UREA NITROGEN 25 MG/DL (7-18); BUN/CREATININE RATIO 22.1 (5.4-32.0); CALCIUM 9.5 MG/DL (8.5-10.1); CHLORIDE 92 MMOL/L (99-107); CREATININE 1.13 MG/DL (0.60-1.10); GLUCOSE 190 MG/DL (70-104); POTASSIUM 4.1 MMOL/L (3.5-5.1); SODIUM 132 MMOL/L (135-145); TOTAL CARBON DIOXIDE 32.5 MMOL/L (24-32); TOTAL PROTEIN 8.3 G/DL (6.4-8.2); eGFR 64 ML/MIN
[2019-01-07 23:39] LABS: MAGNESIUM 2.1 MG/DL (1.5-2.4); TROPONIN I < 0.04 NG/ML (0.0-0.05)
[2019-01-07 23:45] LABS: CLARITY,URINE CLEAR (Clear); COLOR,URINE YELLOW (Yellow); GLUCOSE, URINE 100 mg/dl (Neg); KETONES,URINE NEGATIVE (Neg); LEUKOCYTE ESTERASE ,URINE NEGATIVE (Neg); NITRITES, URINE NEGATIVE (Neg); OCCULT BLOOD,URINE SMALL (Neg); PH,URINE 5.5 (4.8-8.0); PROTEIN,URINE TRACE mg/dl (Neg); UROBILINOGEN,URINE 0.2 E.U/dL (0.2-1.0)
[2019-01-07] MEDS ORDERED: rocuronium 10mg/ml inj IV ONE (23:45)
[2019-01-07] MEDS ORDERED: etomidate 2mg/ml inj. IV ONE (23:45)
[2019-01-07 23:51] LABS: UA COLLECTION TYPE FOLEY CATH
[2019-01-07 23:52] LABS: BACTERIA,URINE FEW /HPF (Neg); MUCUS STRANDS FEW /LPF (Neg); RBC,URINE NONE SEEN /HPF (0-2); SQUAMOUS EPITHELIAL CELL,UR FEW /LPF (FEW); WBC,URINE 0-4 /HPF (0-4)
[2019-01-07 23:55] LABS: ABG BASE EXCESS -0.9 mmol/L (-2.0-3.0); ABG HCO3 27.5 mmol/L (22.0-26.0); ABG OXYGEN SATURATION 96.7 % (95-98); ABG PCO2 (T) 62.5 mmHg (35.0-48.0); ABG PH (T) 7.262 (7.350-7.450); ABG PO2 (T) 105.3 mmHg (83-108); FCOHb 0.6 % (0.5-1.5); FMetHb 0.4 % (0.3-1.12); FO2Hb 95.7 % (94-100); MINUTE VOLUME 9 L/min; PATIENT TEMPERATURE 37.1; PEEP 8 cm H2O; RESPIRATORY RATE 18 b/min; RESPIRATORY RATE (OBSERVED) 18 b/min; TIDAL VOLUME 450 mL; TOTAL HEMOGLOBIN 14.1 G/dl (14.0-18.0)
[2019-01-08] VITALS (21 sets, daily range): BP systolic 69–142; BP diastolic 41–88
--- NOTE | 2019-01-08 00:17 | NUR ---
FAMILY AT BEDSIDE, REFUSING NG TUBE DUE TO PT HAS PEG TUBE AND ESOPHAGEAL CLOSURE
[2019-01-08] MEDS ORDERED: albuterol 2.5 MG/3 ML nebule NEB PRN (00:50)
[2019-01-08] MEDS ORDERED: acetaminophen 325mg tablet PO PRN ×2 (00:50)
[2019-01-08] MEDS ORDERED: potassium Cl 40MEQ/NS 500ml 500 ML IV PRN ×2 (00:50)
[2019-01-08] MEDS ORDERED: acetaminophen 650mg rectal suppository RC PRN (00:50)
[2019-01-08] MEDS ORDERED: VECuronium br 10mg inj. IV ONE ×2 (01:05→01:06)
[2019-01-08] MEDS ORDERED: methylPREDNISolone sod succ 125mg/2ml vial IV ONE (01:15)
[2019-01-08] MEDS ORDERED: albuterol 2.5 MG/3 ML nebule NEB ONE (01:15)
[2019-01-08] MEDS: methylPREDNISolone sod succ/PF 40mg inj. IV SCH ×4 (02:00→20:50)
[2019-01-08] MEDS: FENTANYL-0.9 % NACL/PF 100 ML IV PRN (02:24)
[2019-01-08] MEDS: midazolam 100mg in NS 100ml 100 ML IV PRN (02:25)
[2019-01-08] MEDS: normal saline 1000ml 1,000 ML IV SCH ×3 (02:26→16:49)
--- NOTE | 2019-01-08 02:36 | NUR ---
Patient in room . I have received report and had the opportunity to ask questions and assume patient care.
[2019-01-08] MEDS: ipratropium/albuterol 3ml nebule NEB SCH ×6 (03:28→23:08)
--- NOTE | 2019-01-08 03:50 | NUR ---
PT BP DROPPED TO 70/40. MD NOTIFIED. LEVOPHED ORDERED AND STARTED PER PROTOCOL. MD TO PUT IN CENTRAL LINE.
--- NOTE | 2019-01-08 04:15 | NUR ---
MD YORK PLACED CENTRAL LINE RIGHT SUBCLAVIAN. PLACEMENT CONFIRMED VIA XRAY. BP 92/50 ON 12 MCG LEVOPHED.
[2019-01-08 04:36] LABS: ABG BASE EXCESS 1.7 mmol/L (-2.0-3.0); ABG OXYGEN SATURATION 94.3 % (95-98); ABG PCO2 (T) 63.6 mmHg (35.0-48.0); ABG PO2 (T) 78.5 mmHg (83-108); ALLEN'S TEST Positive; FLOW 1 L/min; FMetHb 0.2 % (0.3-1.12); FO2Hb 94.1 % (94-100); PATIENT TEMPERATURE 36.9; PEEP 8 cm H2O; RESPIRATORY RATE 18 b/min; TOTAL HEMOGLOBIN 13.6 G/dl (14.0-18.0)
[2019-01-08] MEDS: NORepinephrine 8mg/ 250ml NS 250 ML IV SCH ×3 (04:36→21:48)
[2019-01-08 04:51] LABS: OXYGEN SATURATION (MIXED VEN) 74.6 % (60-80); PO2 MIXED VENOUS (TEMP COR) 43.1 mmHg (35-46)
--- NOTE | 2019-01-08 04:53 | NUR ---
PO2/FiO2 RATIO 0.43. REQUESTED ROTOPRONE. STATED VENKAT WILL CONSULT IN AM.
[2019-01-08 05:29] LABS: HEMATOCRIT 38.9 % (42.0-52.0); HEMOGLOBIN 12.9 g/dl (14.0-17.9); MEAN PLATELET VOLUME 9.6 FL (7.4-10.4); RED BLOOD COUNT 3.97 X10'6 (4.70-6.10); RED CELL DISTRIBUTION WIDTH 13.6 % (11.5-14.5); WHITE BLOOD COUNT 1.7 X10'3 (4.5-11.0)
[2019-01-08 05:31] LABS: MEAN CORPUSCULAR HEMOGLOBIN 32.4 PG (27.0-31.0); MEAN CORPUSCULAR HGB CONC 33.1 g/dL (33.0-36.5); MEAN CORPUSCULAR VOLUME 97.9 FL (78-98); PLATELET COUNT 202 X10'3 (140-440)
[2019-01-08 05:37] LABS: ALANINE AMINOTRANSFERASE 54 U/L (12-78); ALBUMIN 2.6 G/DL (3.4-5.0); ALBUMIN/GLOBULIN RATIO 0.8 (1.1-1.5); ALKALINE PHOSPHATASE 66 IU/L (46-116); ANION GAP 5 (8-16); ASPARTATE AMINO TRANSFERASE 60 U/L (10-37); BILIRUBIN,TOTAL 0.4 MG/DL (0.1-1.0); BLOOD UREA NITROGEN 22 MG/DL (7-18); BUN/CREATININE RATIO 24.2 (5.4-32.0); CHLORIDE 100 MMOL/L (99-107); CREATININE 0.91 MG/DL (0.60-1.10); GLUCOSE 83 MG/DL (70-104); POTASSIUM 3.8 MMOL/L (3.5-5.1); SODIUM 135 MMOL/L (135-145); TOTAL CARBON DIOXIDE 30.3 MMOL/L (24-32); TOTAL PROTEIN 5.7 G/DL (6.4-8.2); eGFR 82 ML/MIN
[2019-01-08 06:02] LABS: PLATELET ESTIMATE NORMAL; STOMATOCYTES FEW; TOTAL CELLS COUNTED 100
[2019-01-08] MEDS: vasopressin inj. 60 UNIT in normal saline 100ml IV soln 97 ML IV SCH (06:30)
--- NOTE | 2019-01-08 06:30 | NUR ---
Patient in room CICU 2010. I have received report from Ashley IYER and had the opportunity to ask questions and assume patient care. Patient on 18 mcg of levo with a MAP of 51, turned Levo up to 25 per September TICKER MAINTAINER and MAP was 49, patients position changed with legs elevated and head tilted down, Levo at 30mcg per September TICKER MAINTAINER and MAP is now 76. Vasopressin now available to use also. Patient is on 100 Fio2 aND peep OF 8. Chest xray has gotten increasingly worse since admission. Will continue to monitor.
[2019-01-08] MEDS ORDERED: bisacodyl 10mg suppository rectal RC PRN (08:00)
[2019-01-08] MEDS ORDERED: lactulose 20gm/30ml cup PO PRN (08:00)
[2019-01-08] MEDS ORDERED: etomidate 2mg/ml inj. ONE (09:00)
[2019-01-08] MEDS: lactulose 20gm/30ml cup PO SCH (09:18)
[2019-01-08] MEDS: pantoprazole 40 MG vial IV SCH (09:19)
[2019-01-08] MEDS: heparin, porcine 5000 units/ml vial SQ SCH ×2 (09:19→20:50)
[2019-01-08] MEDS: ondansetron/PF 4mg/2ml inj IV PRN (09:19)
[2019-01-08] MEDS: sennosides/docusate sodium tablet PEG SCH ×3 (09:22→20:49)
--- NOTE | 2019-01-08 10:40 | NUR ---
TF consult: Pt admit for acute resp failure and bilat PNA requiring intubation. Pt with difficulty swallowing post radiation therapy r/t throat CA and gets bolus feeding at home via PEG per H&P. Attempted visit at bedside to obtain home bolus regime however no family present. Per H&P and past RD notes speaking with family, bolus home regime is 2 bottles Fibersource Hn 1.2 (500 mL total each feeding) TID at 0800, 1300, and 1900. Pt with increased protein needs r/t intubation. Recommendations below calculated to provide total volume of 1800 mL/d, 2160 kcal, 135 g protein, and 1460 water meeting 100% of patient's estimated nutrient needs using continuous TF while intubated. Formula may be readjusted following extubation with bolus feeds. Will continue to follow. Recommendations: 1) Continuous TF via PEG using Vital AF with goal rate of 75 mL/hr 2) 200 mL water flush q 4 hours; Monitor Na given currently on the low end of WNL 3) Prealbumin q /; daily weights 4) Adjust PEG TF as appropriate s/p extubation Addendum: 01/08/19 at [address] Amended: Links added.
[2019-01-08] MEDS: piperacillin/tazo 3.375gm/50ml 50 ML IV SCH (14:46)
--- NOTE | 2019-01-08 18:28 | NUR ---
Problems reprioritized. Patient report given, questions answered & plan of care reviewed with Temper Mill Operator RN.
--- NOTE | 2019-01-08 18:39 | NUR ---
Patient in room CICU 2010. I have received report from Mayra Parekh and had the opportunity to ask questions and assume patient care. patient resting in bed comfortably on ventilator, fio2 at 955 peep of 8 sating at 99%, pt has fentanyl, versed, levophed, vasopressin and normal saline running through a right subclavian. vital signs are stable and patient shows no signs of distress, will continue to monitor Addendum: 01/09/19 at 0216 by Jia Coon RN Fio2 at 95 not 955
[2019-01-08 21:26] LABS: ABG BASE EXCESS -4.4 mmol/L (-2.0-3.0); ABG HCO3 22.3 mmol/L (22.0-26.0); ABG OXYGEN SATURATION 96.8 % (95-98); ABG PCO2 (T) 49.1 mmHg (35.0-48.0); ABG PH (T) 7.279 (7.350-7.450); ABG PO2 (T) 94.5 mmHg (83-108); ALLEN'S TEST Positive; FCOHb 0.3 % (0.5-1.5); FMetHb 0.2 % (0.3-1.12); FO2Hb 96.3 % (94-100); MINUTE VOLUME 13 L/min; PATIENT TEMPERATURE 37.6; PEEP 8 cm H2O; RESPIRATORY RATE 22 b/min; TOTAL HEMOGLOBIN 12.6 G/dl (14.0-18.0)
[2019-01-08] MEDS ORDERED: CefTRIAXone inj 2,000 MG in dextrose 5%-water 50ml 50 ML IV SCH (23:00)
[2019-01-08] MEDS ORDERED: azithromycin/NS 500mg/250ml 250 ML IV SCH (23:00)
[2019-01-09] VITALS (24 sets, daily range): BP systolic 78–153; BP diastolic 42–82
[2019-01-09] MEDS: midodrine 5mg tablet PO SCH ×4 (00:03→16:52)
[2019-01-09] MEDS: piperacillin/tazo 3.375gm/50ml 50 ML IV SCH ×3 (00:04→15:43)
--- NOTE | 2019-01-09 01:00 | NUR ---
unable to administer 2000 dose of senna and 0000 dose of midodrine, we do not have the proper access tubing to administer meds through the patients "froy" peg tube, HE Watters aware of the situation, She requested that day shift follow up with the or request that proper supplies be obtained so that these and other meds to be administered through the peg tube and be given.
[2019-01-09] MEDS: normal saline 1000ml 1,000 ML IV SCH ×3 (01:48→16:49)
[2019-01-09] MEDS: methylPREDNISolone sod succ/PF 40mg inj. IV SCH ×4 (01:52→19:53)
[2019-01-09] MEDS: mineral oil/petrolatum ophthal oint EACHEYE SCH ×4 (01:52→19:53)
--- NOTE | 2019-01-09 02:17 | NUR ---
Tube feeding on hold until the proper access tubing can be obtained, CONSTRUCTION COST ESTIMATOR marta aware.
[2019-01-09 02:22] LABS: HEMOGLOBIN 10.9 g/dl (14.0-17.9)
[2019-01-09 02:24] LABS: HEMATOCRIT 32.5 % (42.0-52.0); MEAN CORPUSCULAR HEMOGLOBIN 32.7 PG (27.0-31.0); MEAN CORPUSCULAR HGB CONC 33.4 g/dL (33.0-36.5); MEAN CORPUSCULAR VOLUME 98.1 FL (78-98); MEAN PLATELET VOLUME 9.3 FL (7.4-10.4); PLATELET COUNT 196 X10'3 (140-440); RED BLOOD COUNT 3.32 X10'6 (4.70-6.10); RED CELL DISTRIBUTION WIDTH 13.7 % (11.5-14.5); WHITE BLOOD COUNT 13.7 X10'3 (4.5-11.0)
[2019-01-09 02:45] LABS: ALANINE AMINOTRANSFERASE 41 U/L (12-78); ALBUMIN 2.1 G/DL (3.4-5.0); ALBUMIN/GLOBULIN RATIO 0.6 (1.1-1.5); ALKALINE PHOSPHATASE 46 IU/L (46-116); ANION GAP 8 (8-16); ASPARTATE AMINO TRANSFERASE 33 U/L (10-37); BILIRUBIN,TOTAL 0.4 MG/DL (0.1-1.0); BLOOD UREA NITROGEN 23 MG/DL (7-18); BUN/CREATININE RATIO 20.4 (5.4-32.0); CHLORIDE 102 MMOL/L (99-107); CREATININE 1.13 MG/DL (0.60-1.10); GLUCOSE 135 MG/DL (70-104); MAGNESIUM 1.5 MG/DL (1.5-2.4); PHOSPHORUS 2.7 MG/DL (2.3-4.5); POTASSIUM 4.3 MMOL/L (3.5-5.1); SODIUM 135 MMOL/L (135-145); TOTAL CARBON DIOXIDE 25.1 MMOL/L (24-32); TOTAL PROTEIN 5.4 G/DL (6.4-8.2); eGFR 64 ML/MIN
[2019-01-09] MEDS: ipratropium/albuterol 3ml nebule NEB SCH ×6 (03:18→23:31)
[2019-01-09 03:37] LABS: PLATELET ESTIMATE NORMAL; TOTAL CELLS COUNTED 100; TOXIC GRANULATION 1+
[2019-01-09 03:41] LABS: ABG BASE EXCESS -1.7 mmol/L (-2.0-3.0); ABG HCO3 23.9 mmol/L (22.0-26.0); ABG OXYGEN SATURATION 97.1 % (95-98); ABG PCO2 (T) 45.3 mmHg (35.0-48.0); ABG PH (T) 7.343 (7.350-7.450); ABG PO2 (T) 96.5 mmHg (83-108); ALLEN'S TEST Positive; FCOHb 0.3 % (0.5-1.5); FMetHb 0.1 % (0.3-1.12); FO2Hb 96.7 % (94-100); MINUTE VOLUME 14 L/min; PATIENT TEMPERATURE 37.6; PEEP 8 cm H2O; RESPIRATORY RATE 22 b/min; RESPIRATORY RATE (OBSERVED) 22 b/min; TOTAL HEMOGLOBIN 12.2 G/dl (14.0-18.0)
[2019-01-09] MEDS: midazolam 100mg in NS 100ml 100 ML IV PRN (04:07)
[2019-01-09] MEDS: sennosides/docusate sodium tablet PEG SCH ×2 (08:00→19:54)
[2019-01-09] MEDS: lactulose 20gm/30ml cup PO SCH (08:00)
[2019-01-09] MEDS: levoTHYROXINE 25mcg tablet PO SCH (08:00)
[2019-01-09] MEDS: pantoprazole 40 MG vial IV SCH (08:18)
[2019-01-09] MEDS: heparin, porcine 5000 units/ml vial SQ SCH ×2 (08:18→19:53)
--- NOTE | 2019-01-09 18:20 | NUR ---
Patient in room CICU 2010. I have received report and had the opportunity to ask questions and assume patient care.
[2019-01-09] MEDS: lactobacillus rhamnosus 10,000 MMU CELLS/CAPSULE PO SCH (19:54)
[2019-01-10] VITALS (24 sets, daily range): BP systolic 90–143; BP diastolic 57–91
[2019-01-10] MEDS: piperacillin/tazo 3.375gm/50ml 50 ML IV SCH ×3 (00:53→16:09)
[2019-01-10] MEDS: midodrine 5mg tablet PO SCH ×3 (00:53→16:09)
--- NOTE | 2019-01-10 01:00 | NUR ---
pt o2 sat went to 87% on spontaneous. pt switched back to a/c pc ventilator settings. pt spo2 increased to 95%. will continue to monitor.
[2019-01-10] MEDS: normal saline 1000ml 1,000 ML IV SCH ×3 (01:12→16:49)
[2019-01-10] MEDS: methylPREDNISolone sod succ/PF 40mg inj. IV SCH ×4 (02:17→19:25)
[2019-01-10] MEDS: mineral oil/petrolatum ophthal oint EACHEYE SCH ×4 (02:17→19:25)
[2019-01-10 02:44] LABS: BASOPHILS # (AUTO) 0.1 X10'3 (0-0.2); BASOPHILS % (AUTO) 0.8 % (0-1); EOSINOPHILS % (AUTO) 0 % (0-6); HEMATOCRIT 28.3 % (42.0-52.0); HEMOGLOBIN 9.7 g/dl (14.0-17.9); LYMPHOCYTES # (AUTO) 0.1 X10'3 (1.1-4.8); LYMPHOCYTES % (AUTO) 0.7 % (21-51); MEAN CORPUSCULAR HEMOGLOBIN 33.3 PG (27.0-31.0); MEAN CORPUSCULAR HGB CONC 34.1 g/dL (33.0-36.5); MEAN CORPUSCULAR VOLUME 97.5 FL (78-98); MEAN PLATELET VOLUME 9.5 FL (7.4-10.4); MONOCYTES # (AUTO) 0.4 X10'3 (0-0.9); MONOCYTES % (AUTO) 2.5 % (2-12); NEUTROPHILS # (AUTO) 16.3 X10'3 (1.8-7.7); PLATELET COUNT 166 X10'3 (140-440); RED CELL DISTRIBUTION WIDTH 13.9 % (11.5-14.5)
[2019-01-10 03:06] LABS: ALANINE AMINOTRANSFERASE 29 U/L (12-78); ALBUMIN 1.9 G/DL (3.4-5.0); ALBUMIN/GLOBULIN RATIO 0.6 (1.1-1.5); ALKALINE PHOSPHATASE 61 IU/L (46-116); ANION GAP 4 (8-16); ASPARTATE AMINO TRANSFERASE 24 U/L (10-37); BILIRUBIN,TOTAL 0.3 MG/DL (0.1-1.0); BLOOD UREA NITROGEN 22 MG/DL (7-18); CALCIUM 8.7 MG/DL (8.5-10.1); CHLORIDE 104 MMOL/L (99-107); CREATININE 0.71 MG/DL (0.60-1.10); GLUCOSE 160 MG/DL (70-104); MAGNESIUM 2.1 MG/DL (1.5-2.4); POTASSIUM 3.4 MMOL/L (3.5-5.1); PREALBUMIN 10.5 MG/DL (19-36); SODIUM 139 MMOL/L (135-145); TOTAL CARBON DIOXIDE 30.9 MMOL/L (24-32); TOTAL PROTEIN 5.3 G/DL (6.4-8.2); eGFR > 90 ML/MIN
[2019-01-10] MEDS ORDERED: sodium phosphate inj. 30 MMOL in dextrose 5%-water 250 ML IV ONE (03:15)
[2019-01-10] MEDS: ipratropium/albuterol 3ml nebule NEB SCH ×6 (03:27→23:16)
[2019-01-10] MEDS: NORepinephrine 8mg/ 250ml NS 250 ML IV SCH (03:45)
[2019-01-10 04:04] LABS: PLATELET ESTIMATE NORMAL; TOTAL CELLS COUNTED 100; TOXIC GRANULATION 1+
--- NOTE | 2019-01-10 04:04 | NUR ---
attempted to place pt back on spontaneous. pt spo2 dropped to 88% and heart rate increased to 118. pt did not tolerate the change. pt placed back on a/c pc. fio2 increased to 60%. will continue to monitor.
[2019-01-10 04:31] LABS: ABG HCO3 30.1 mmol/L (22.0-26.0); ABG OXYGEN SATURATION 94.7 % (95-98); ABG PCO2 (T) 41.1 mmHg (35.0-48.0); ABG PH (T) 7.481 (7.350-7.450); ABG PO2 (T) 67.1 mmHg (83-108); ALLEN'S TEST Positive; FCOHb 0.3 % (0.5-1.5); FMetHb 0.3 % (0.3-1.12); FO2Hb 94.1 % (94-100); MINUTE VOLUME 16 L/min; PATIENT TEMPERATURE 36.6; PEEP 8 cm H2O; RESPIRATORY RATE 22 b/min; RESPIRATORY RATE (OBSERVED) 22 b/min; TOTAL HEMOGLOBIN 10.9 G/dl (14.0-18.0)
[2019-01-10] MEDS: vasopressin inj. 60 UNIT in normal saline 100ml IV soln 97 ML IV SCH (06:30)
--- NOTE | 2019-01-10 06:40 | NUR ---
Patient in room CICU 2010. I have received report from SHIREEN Ramirez and had the opportunity to ask questions and assume patient care.
--- NOTE | 2019-01-10 06:40 | NUR ---
Received report with primary RN Sade to assume care and ask questions of pt in room 2011
[2019-01-10] MEDS: FENTANYL-0.9 % NACL/PF 100 ML IV PRN (07:14)
[2019-01-10] MEDS: pantoprazole 40 MG vial IV SCH (08:07)
[2019-01-10] MEDS: lactobacillus rhamnosus 10,000 MMU CELLS/CAPSULE PO SCH ×2 (08:32→19:25)
[2019-01-10] MEDS: lactulose 20gm/30ml cup PO SCH (08:33)
[2019-01-10] MEDS: heparin, porcine 5000 units/ml vial SQ SCH ×2 (08:35→19:26)
[2019-01-10] MEDS: sennosides/docusate sodium tablet PEG SCH ×2 (08:36→19:25)
[2019-01-10] MEDS: levoTHYROXINE 25mcg tablet PO SCH (08:36)
--- NOTE | 2019-01-10 10:30 | NUR ---
PIV in right AC was no longer patent, leaked fluid when tried to flush.
--- NOTE | 2019-01-10 12:14 | NUR ---
Per Dr. Boyer, wean FiO2 to keep O2 sats 88-90%
[2019-01-10 13:16] LABS: POTASSIUM 3.7 MMOL/L (3.5-5.1)
--- NOTE | 2019-01-10 18:22 | NUR ---
Problems reprioritized. Patient report given, questions answered & plan of care reviewed with SHIREEN Hart.
[2019-01-11] VITALS (24 sets, daily range): BP systolic 101–157; BP diastolic 61–104
[2019-01-11] MEDS: midodrine 5mg tablet PO SCH ×3 (00:13→15:45)
[2019-01-11] MEDS: piperacillin/tazo 3.375gm/50ml 50 ML IV SCH ×3 (00:13→15:44)
[2019-01-11] MEDS: normal saline 1000ml 1,000 ML IV SCH ×2 (00:49→08:49)
[2019-01-11] MEDS: mineral oil/petrolatum ophthal oint EACHEYE SCH ×4 (02:06→19:43)
[2019-01-11] MEDS: methylPREDNISolone sod succ/PF 40mg inj. IV SCH ×4 (02:09→19:43)
[2019-01-11 02:39] LABS: HEMOGLOBIN 9.5 g/dl (14.0-17.9); MONOCYTES # (AUTO) 0.5 X10'3 (0-0.9)
[2019-01-11 02:41] LABS: BASOPHILS % (AUTO) 0.2 % (0-1); EOSINOPHILS % (AUTO) 0 % (0-6); HEMATOCRIT 28.4 % (42.0-52.0); LYMPHOCYTES # (AUTO) 0.1 X10'3 (1.1-4.8); LYMPHOCYTES % (AUTO) 0.6 % (21-51); MEAN CORPUSCULAR HEMOGLOBIN 32.7 PG (27.0-31.0); MEAN CORPUSCULAR HGB CONC 33.6 g/dL (33.0-36.5); MEAN CORPUSCULAR VOLUME 97.4 FL (78-98); MEAN PLATELET VOLUME 9.6 FL (7.4-10.4); MONOCYTES % (AUTO) 2.2 % (2-12); NEUTROPHILS # (AUTO) 20.3 X10'3 (1.8-7.7); PLATELET COUNT 171 X10'3 (140-440); RED BLOOD COUNT 2.91 X10'6 (4.70-6.10)
[2019-01-11 02:45] LABS: ALANINE AMINOTRANSFERASE 40 U/L (12-78); ALBUMIN 1.9 G/DL (3.4-5.0); ALBUMIN/GLOBULIN RATIO 0.5 (1.1-1.5); ALKALINE PHOSPHATASE 108 IU/L (46-116); ANION GAP 0 (8-16); ASPARTATE AMINO TRANSFERASE 31 U/L (10-37); BILIRUBIN,TOTAL 0.3 MG/DL (0.1-1.0); BLOOD UREA NITROGEN 28 MG/DL (7-18); CALCIUM 8.5 MG/DL (8.5-10.1); CHLORIDE 103 MMOL/L (99-107); GLUCOSE 149 MG/DL (70-104); MAGNESIUM 2.1 MG/DL (1.5-2.4); PHOSPHORUS 2.1 MG/DL (2.3-4.5); POTASSIUM 4.1 MMOL/L (3.5-5.1); SODIUM 137 MMOL/L (135-145); TOTAL CARBON DIOXIDE 33.6 MMOL/L (24-32); TOTAL PROTEIN 5.6 G/DL (6.4-8.2); eGFR > 90 ML/MIN
[2019-01-11] MEDS: midazolam 100mg in NS 100ml 100 ML IV PRN (02:58)
[2019-01-11] MEDS: ipratropium/albuterol 3ml nebule NEB SCH ×5 (03:34→20:29)
[2019-01-11 03:46] LABS: ABG BASE EXCESS 5.5 mmol/L (-2.0-3.0); ABG HCO3 30.9 mmol/L (22.0-26.0); ABG OXYGEN SATURATION 94.8 % (95-98); ABG PCO2 (T) 47.1 mmHg (35.0-48.0); ABG PH (T) 7.431 (7.350-7.450); ABG PO2 (T) 66.9 mmHg (83-108); ALLEN'S TEST Positive; FCOHb 0.3 % (0.5-1.5); FMetHb 0.3 % (0.3-1.12); FO2Hb 94.2 % (94-100); MINUTE VOLUME 8 L/min; PATIENT TEMPERATURE 35.8; PEEP 8 cm H2O; RESPIRATORY RATE (OBSERVED) 11 b/min; TOTAL HEMOGLOBIN 10.7 G/dl (14.0-18.0)
[2019-01-11 03:49] LABS: TOTAL CELLS COUNTED 100
[2019-01-11 03:50] LABS: PLATELET ESTIMATE NORMAL; POLYCHROMASIA 1+; TOXIC GRANULATION 1+
--- NOTE | 2019-01-11 06:51 | NUR ---
Patient in room CICU 2010. I have received report from SHIREEN Banegas and had the opportunity to ask questions and assume patient care.
[2019-01-11] MEDS: pantoprazole 40 MG vial IV SCH (07:10)
[2019-01-11] MEDS: heparin, porcine 5000 units/ml vial SQ SCH ×2 (07:11→19:44)
[2019-01-11] MEDS: levoTHYROXINE 25mcg tablet PO SCH (07:12)
[2019-01-11] MEDS: lactobacillus rhamnosus 10,000 MMU CELLS/CAPSULE PO SCH (07:12)
[2019-01-11] MEDS: sennosides/docusate sodium tablet PEG SCH ×2 (07:12→19:44)
[2019-01-11] MEDS: lactulose 20gm/30ml cup PO SCH (07:12)
[2019-01-11] MEDS ORDERED: racepinephrine 11.25mg/0.5ml nebule NEB PRN (11:35)
[2019-01-11] MEDS ORDERED: ipratropium/albuterol 3ml nebule NEB PRN (11:35)
--- NOTE | 2019-01-11 12:32 | NUR ---
Pt extubated per Dr. Boyer's orders at 1205. Placed pt on 3L NC which is how much he uses at home. Pt satting in 70s, bagged pt for 5 minutes while obtaining HFNC. Pt placed on HFNC with sats improving to 84-88%. Pt currently receiving breathing treatment which is improving sats up to 90%. Dr. Boyer aware. Will cont to monitor.
--- NOTE | 2019-01-11 12:35 | NUR ---
Reassessment: Pt to be extubated today and with x-rays consistent with aspiration pneumonia per MD notes. Pt continues to tolerate TF with residuals WNL of 50-180 mL. LBM 01/09. Will monitor for extubation and need for TF formula change. TF consult: Pt admit for acute resp failure and bilat PNA requiring intubation. Pt with difficulty swallowing post radiation therapy r/t throat CA and gets bolus feeding at home via PEG per H&P. Attempted visit at bedside to obtain home bolus regime however no family present. Per H&P and past RD notes speaking with family, bolus home regime is 2 bottles Fibersource Hn 1.2 (500 mL total each feeding) TID at 0800, 1300, and 1900. Pt with increased protein needs r/t intubation. Recommendations below calculated to provide total volume of 1800 mL/d, 2160 kcal, 135 g protein, and 1460 water meeting 100% of patient's estimated nutrient needs using continuous TF while intubated. Formula may be readjusted following extubation with bolus feeds. Will continue to follow. Recommendations: 1) Continuous TF via PEG using Vital AF with goal rate of 75 mL/hr 2) 200 mL water flush q 4 hours; Monitor Na given currently on the low end of WNL 3) Prealbumin q /; daily weights 4) Adjust PEG TF as appropriate s/p extubation Addendum: 01/11/19 at [address] Amended: Links added.
[2019-01-11] MEDS: FENTANYL-0.9 % NACL/PF 100 ML IV PRN (14:44)
--- NOTE | 2019-01-11 15:24 | NUR ---
Pt unable to keep sats up on HFNC. Continued to bag pt while getting venturi mask. Sats never adriana above 82%. Called Dr. Boyer while continuing to bag pt. Pt reintubated at 1315 with 20 of etomidate. Placed back on 5mcg fent and 5 mg versed. Family at bedside speaking with Dr. Boyer prior to intubation. Pt to be taken to CT this afternoon for Chest/abd/pelvis CT due to failed extubation and possible free air in abd
[2019-01-11] MEDS ORDERED: iohexol 350MG/ML 100ml bottle IV ONE (16:28)
--- NOTE | 2019-01-11 17:32 | NUR ---
Pt taken to CT and back without complications
[2019-01-11] MEDS ORDERED: lactulose 20gm/30ml cup PEG PRN (17:33)
[2019-01-11] MEDS ORDERED: acetaminophen 325mg/10.15ml oral unit dose solution PEG PRN (17:33)
--- NOTE | 2019-01-11 18:15 | NUR ---
Problems reprioritized. Patient report given, questions answered & plan of care reviewed with SHIREEN Banegas.
[2019-01-11] MEDS: lactobacillus rhamnosus 10,000 MMU CELLS/CAPSULE PEG SCH (19:43)
[2019-01-12] VITALS (23 sets, daily range): BP systolic 117–171; BP diastolic 74–113
[2019-01-12] MEDS: normal saline 1000ml 1,000 ML IV SCH
[2019-01-12] MEDS: midodrine 5mg tablet PEG SCH ×3 (00:15→16:00)
[2019-01-12] MEDS: piperacillin/tazo 3.375gm/50ml 50 ML IV SCH ×3 (00:16→15:29)
[2019-01-12] MEDS: methylPREDNISolone sod succ/PF 40mg inj. IV SCH ×4 (02:39→20:14)
[2019-01-12] MEDS: mineral oil/petrolatum ophthal oint EACHEYE SCH ×4 (02:39→20:15)
[2019-01-12 02:45] LABS: BASOPHILS % (AUTO) 0 % (0-1); EOSINOPHILS % (AUTO) 0.3 % (0-6); HEMATOCRIT 28.9 % (42.0-52.0); HEMOGLOBIN 9.9 g/dl (14.0-17.9); LYMPHOCYTES # (AUTO) 0.2 X10'3 (1.1-4.8); LYMPHOCYTES % (AUTO) 1.3 % (21-51); MEAN CORPUSCULAR HEMOGLOBIN 33.1 PG (27.0-31.0); MEAN CORPUSCULAR HGB CONC 34.1 g/dL (33.0-36.5); MEAN CORPUSCULAR VOLUME 97.1 FL (78-98); MEAN PLATELET VOLUME 9.5 FL (7.4-10.4); MONOCYTES # (AUTO) 0.5 X10'3 (0-0.9); NEUTROPHILS # (AUTO) 15.6 X10'3 (1.8-7.7); NEUTROPHILS % (AUTO) 95.4 % (42-75); PLATELET COUNT 181 X10'3 (140-440); RED BLOOD COUNT 2.98 X10'6 (4.70-6.10); RED CELL DISTRIBUTION WIDTH 14.1 % (11.5-14.5); WHITE BLOOD COUNT 16.3 X10'3 (4.5-11.0)
[2019-01-12 03:03] LABS: ALANINE AMINOTRANSFERASE 49 U/L (12-78); ALBUMIN 1.8 G/DL (3.4-5.0); ALBUMIN/GLOBULIN RATIO 0.5 (1.1-1.5); ALKALINE PHOSPHATASE 133 IU/L (46-116); ANION GAP 2 (8-16); ASPARTATE AMINO TRANSFERASE 28 U/L (10-37); BILIRUBIN,TOTAL 0.3 MG/DL (0.1-1.0); BLOOD UREA NITROGEN 28 MG/DL (7-18); BUN/CREATININE RATIO 43.1 (5.4-32.0); CALCIUM 8.7 MG/DL (8.5-10.1); CHLORIDE 103 MMOL/L (99-107); CREATININE 0.65 MG/DL (0.60-1.10); GLUCOSE 138 MG/DL (70-104); MAGNESIUM 1.9 MG/DL (1.5-2.4); PHOSPHORUS 1.7 MG/DL (2.3-4.5); POTASSIUM 4.3 MMOL/L (3.5-5.1); SODIUM 138 MMOL/L (135-145); TOTAL CARBON DIOXIDE 32.9 MMOL/L (24-32); TOTAL PROTEIN 5.3 G/DL (6.4-8.2); eGFR > 90 ML/MIN
[2019-01-12] MEDS: ipratropium/albuterol 3ml nebule NEB SCH ×4 (03:32→20:44)
[2019-01-12 03:38] LABS: PLATELET ESTIMATE NORMAL; POLYCHROMASIA FEW; TOTAL CELLS COUNTED 100; TOXIC GRANULATION 1+
[2019-01-12 03:46] LABS: ABG HCO3 33.1 mmol/L (22.0-26.0); ABG OXYGEN SATURATION 96.5 % (95-98); ABG PCO2 (T) 47.2 mmHg (35.0-48.0); ABG PH (T) 7.461 (7.350-7.450); ABG PO2 (T) 80.9 mmHg (83-108); ALLEN'S TEST Positive; FCOHb 0.3 % (0.5-1.5); FMetHb 0.3 % (0.3-1.12); FO2Hb 95.9 % (94-100); MINUTE VOLUME 8 L/min; PATIENT TEMPERATURE 36.1; PEEP 5 cm H2O; RESPIRATORY RATE 18 b/min; RESPIRATORY RATE (OBSERVED) 18 b/min; TIDAL VOLUME 450 mL; TOTAL HEMOGLOBIN 10.8 G/dl (14.0-18.0)
--- NOTE | 2019-01-12 06:30 | NUR ---
Patient in room CICU 2010. I have received report from travel med surg rn and had the opportunity to ask questions and assume patient care.
[2019-01-12] MEDS: levoTHYROXINE 25mcg tablet PEG SCH (08:29)
[2019-01-12] MEDS: sennosides/docusate sodium tablet PEG SCH ×2 (08:29→20:00)
[2019-01-12] MEDS: lactobacillus rhamnosus 10,000 MMU CELLS/CAPSULE PEG SCH ×2 (08:29→20:14)
[2019-01-12] MEDS: heparin, porcine 5000 units/ml vial SQ SCH ×2 (08:29→20:14)
[2019-01-12] MEDS: lactulose 20gm/30ml cup PEG SCH (08:30)
[2019-01-12] MEDS: pantoprazole 40 MG vial IV SCH (09:14)
--- NOTE | 2019-01-12 10:00 | NUR ---
1000 assisted up to sit in chair by physical therapy, desats noted on exertion to 76%, recovers quickly back to 92 %, tolerating sitting in chair well, alert and oriented , follows direction well, and calm, family visiting. versed and fentanyl turned off. 1200 attempting to wean to fio2 of 40% but pt is unable to keep sats >88% on 40 %, returned back to 45 %, alissaeis in progress.
[2019-01-12] MEDS ORDERED: furosemide 40mg/4ml inj IV ONE (10:30)
--- NOTE | 2019-01-12 10:54 | NUR ---
01/12 Reassessment: Pt was extubated 01/11 however required reintubation per RN at critical care rounds; to attempt extubation again today. Pt currently receiving TF at 60 mL/hr, discussed calculated goal rate of 75 mL/hr with RN. Pt and SO visited at bedside. SO confirms TF regimen of 2 cans Fibersource HN (500 mL total) TID with 1 syringe (60 mL) water flushes before and after each bolus feed. SO states pt sees an RD at the [facility] q few months or sooner PRN to help maintain appropriate feedings. SO reports that pt receives all medications through PEG as well. SO with no questions at this time, RD contact information provided. Will continue to follow. 01/11 Reassessment: Pt to be extubated today and with x-rays consistent with aspiration pneumonia per MD notes. Pt continues to tolerate TF with residuals WNL of 50-180 mL. LBM 01/09. Will monitor for extubation and need for TF formula change. TF consult: Pt admit for acute resp failure and bilat PNA requiring intubation. Pt with difficulty swallowing post radiation therapy r/t throat CA and gets bolus feeding at home via PEG per H&P. Attempted visit at bedside to obtain home bolus regime however no family present. Per H&P and past RD notes speaking with family, bolus home regime is 2 bottles Fibersource Hn 1.2 (500 mL total each feeding) TID at 0800, 1300, and 1900. Pt with increased protein needs r/t intubation. Recommendations below calculated to provide total volume of 1800 mL/d, 2160 kcal, 135 g protein, and 1460 water meeting 100% of patient's estimated nutrient needs using continuous TF while intubated. Formula may be readjusted following extubation with bolus feeds. Will continue to follow. Recommendations: 1) Continuous TF via PEG using Vital AF with goal rate of 75 mL/hr 2) 200 mL water flush q 4 hours; Monitor Na given currently on the low end of WNL 3) Prealbumin q /; daily weights 4) Adjust PEG TF as appropriate s/p extubation Addendum: 01/12/19 at [address] Amended: Links added.
[2019-01-12] MEDS: acetaminophen 325mg/10.15ml oral unit dose solution PEG PRN (15:28)
[2019-01-12] MEDS: furosemide 40mg/4ml inj IV SCH (20:14)
[2019-01-13] VITALS (24 sets, daily range): BP systolic 104–197; BP diastolic 57–136
[2019-01-13] MEDS: piperacillin/tazo 3.375gm/50ml 50 ML IV SCH ×3 (00:12→16:41)
[2019-01-13] MEDS: methylPREDNISolone sod succ/PF 40mg inj. IV SCH ×4 (02:14→20:37)
[2019-01-13] MEDS: mineral oil/petrolatum ophthal oint EACHEYE SCH ×4 (02:14→20:00)
[2019-01-13 02:36] LABS: BASOPHILS % (AUTO) 0.3 % (0-1); EOSINOPHILS # (AUTO) 0.1 X10'3 (0-0.9); EOSINOPHILS % (AUTO) 0.4 % (0-6); HEMATOCRIT 35.1 % (42.0-52.0); HEMOGLOBIN 11.5 g/dl (14.0-17.9); LYMPHOCYTES # (AUTO) 0.2 X10'3 (1.1-4.8); LYMPHOCYTES % (AUTO) 1.9 % (21-51); MEAN CORPUSCULAR HEMOGLOBIN 31.7 PG (27.0-31.0); MEAN CORPUSCULAR HGB CONC 32.9 g/dL (33.0-36.5); MEAN CORPUSCULAR VOLUME 96.3 FL (78-98); MONOCYTES # (AUTO) 0.7 X10'3 (0-0.9); MONOCYTES % (AUTO) 5.7 % (2-12); NEUTROPHILS # (AUTO) 10.9 X10'3 (1.8-7.7); NEUTROPHILS % (AUTO) 91.7 % (42-75); PLATELET COUNT 215 X10'3 (140-440); RED BLOOD COUNT 3.64 X10'6 (4.70-6.10); RED CELL DISTRIBUTION WIDTH 14.1 % (11.5-14.5); WHITE BLOOD COUNT 11.9 X10'3 (4.5-11.0)
[2019-01-13 02:50] LABS: ALANINE AMINOTRANSFERASE 60 U/L (12-78); ALBUMIN 1.9 G/DL (3.4-5.0); ALBUMIN/GLOBULIN RATIO 0.5 (1.1-1.5); ALKALINE PHOSPHATASE 141 IU/L (46-116); ANION GAP 0 (8-16); ASPARTATE AMINO TRANSFERASE 36 U/L (10-37); BILIRUBIN,TOTAL 0.3 MG/DL (0.1-1.0); BLOOD UREA NITROGEN 35 MG/DL (7-18); BUN/CREATININE RATIO 41.2 (5.4-32.0); CALCIUM 8.6 MG/DL (8.5-10.1); CHLORIDE 100 MMOL/L (99-107); CREATININE 0.85 MG/DL (0.60-1.10); GLUCOSE 148 MG/DL (70-104); MAGNESIUM 1.8 MG/DL (1.5-2.4); PHOSPHORUS 3.2 MG/DL (2.3-4.5); POTASSIUM 3.9 MMOL/L (3.5-5.1); SODIUM 142 MMOL/L (135-145); TOTAL PROTEIN 5.7 G/DL (6.4-8.2); eGFR 88 ML/MIN
[2019-01-13 02:52] LABS: TOTAL CARBON DIOXIDE 41.6 MMOL/L (24-32)
[2019-01-13 02:55] LABS: NUCLEATED RED BLOOD CELLS 1 /100WBC (0-0); PLATELET ESTIMATE NORMAL; POLYCHROMASIA FEW; TOTAL CELLS COUNTED 100
[2019-01-13] MEDS: ipratropium/albuterol 3ml nebule NEB SCH ×4 (03:11→20:03)
[2019-01-13 04:01] LABS: ABG BASE EXCESS 15.3 mmol/L (-2.0-3.0); ABG HCO3 41.1 mmol/L (22.0-26.0); ABG OXYGEN SATURATION 93.3 % (95-98); ABG PCO2 (T) 56.1 mmHg (35.0-48.0); ABG PH (T) 7.483 (7.350-7.450); ABG PO2 (T) 65.4 mmHg (83-108); ALLEN'S TEST Positive; FCOHb 0.3 % (0.5-1.5); MINUTE VOLUME 7 L/min; PEEP 5 cm H2O; RESPIRATORY RATE (OBSERVED) 18 b/min; TOTAL HEMOGLOBIN 12.1 G/dl (14.0-18.0)
--- NOTE | 2019-01-13 06:15 | NUR ---
Patient in room CICU 2010. I have received report from DATABASE MARKETING MANAGER and had the opportunity to ask questions and assume patient care.
[2019-01-13] MEDS: normal saline 1000ml 1,000 ML IV SCH (07:45)
[2019-01-13] MEDS: pantoprazole 40 MG vial IV SCH (07:45)
[2019-01-13] MEDS: sennosides/docusate sodium tablet PEG SCH ×2 (07:45→20:00)
[2019-01-13] MEDS: heparin, porcine 5000 units/ml vial SQ SCH ×2 (07:46→20:38)
[2019-01-13] MEDS: furosemide 40mg/4ml inj IV SCH ×2 (07:46→20:37)
[2019-01-13] MEDS: levoTHYROXINE 25mcg tablet PEG SCH (07:46)
[2019-01-13] MEDS: lactobacillus rhamnosus 10,000 MMU CELLS/CAPSULE PEG SCH ×2 (07:46→20:34)
[2019-01-13] MEDS: lactulose 20gm/30ml cup PEG SCH (07:58)
[2019-01-13] MEDS: midodrine 5mg tablet PEG SCH ×3 (08:00→16:00)
[2019-01-13] MEDS: acetaZOLAMIDE IV 500mg inj IV SCH ×2 (09:35→20:38)
[2019-01-13] MEDS ORDERED: racepinephrine 11.25mg/0.5ml nebule NEB PRN (10:40)
[2019-01-13] MEDS ORDERED: ipratropium/albuterol 3ml nebule NEB PRN (10:40)
[2019-01-13] MEDS: acetaminophen 325mg/10.15ml oral unit dose solution PEG PRN (16:44)
--- NOTE | 2019-01-13 18:30 | NUR ---
Patient in room CICU 2010. I have received report from Ella IYER and had the opportunity to ask questions and assume patient care.
--- NOTE | 2019-01-13 20:00 | NUR ---
Pt BP elevated, states he is uncomfortable. That he feels like he has to work to breath. He is afraid to go to sleep because he might stop breathing. Discussed with Jeimy Durant QUALITY ASSURANCE MONITOR CHASSIS and Segun RT the use of a Bipap which the pt is requesting at this time. He does okay with Flutter valve only pulling 250 with IS. He does not use these on his own though. Pt does not appear to be in distress, SpO2 on 3L NC in mid 90's. Lasix to be given as well.
--- NOTE | 2019-01-13 23:00 | NUR ---
Pt tolerating Bipap well although he states he still is having difficulty falling asleep. Urine leaking around duron catheter, high urine output with meds given. Positioned catheter for better drainage.
[2019-01-14] VITALS (24 sets, daily range): BP systolic 90–163; BP diastolic 55–104
[2019-01-14] MEDS: piperacillin/tazo 3.375gm/50ml 50 ML IV SCH ×3 (00:30→16:05)
[2019-01-14] MEDS: mineral oil/petrolatum ophthal oint EACHEYE SCH ×5 (00:30→23:29)
[2019-01-14] MEDS: methylPREDNISolone sod succ/PF 40mg inj. IV SCH ×4 (02:30→20:37)
[2019-01-14] MEDS: ipratropium/albuterol 3ml nebule NEB SCH ×4 (02:30→20:57)
[2019-01-14 03:37] LABS: HEMATOCRIT 42.3 % (42.0-52.0); MEAN PLATELET VOLUME 9.5 FL (7.4-10.4)
[2019-01-14 03:39] LABS: HEMOGLOBIN 14.1 g/dl (14.0-17.9); MEAN CORPUSCULAR HEMOGLOBIN 32.5 PG (27.0-31.0); MEAN CORPUSCULAR HGB CONC 33.4 g/dL (33.0-36.5); MEAN CORPUSCULAR VOLUME 97.1 FL (78-98); PLATELET COUNT 266 X10'3 (140-440); RED BLOOD COUNT 4.36 X10'6 (4.70-6.10); RED CELL DISTRIBUTION WIDTH 14.2 % (11.5-14.5); WHITE BLOOD COUNT 13.9 X10'3 (4.5-11.0)
[2019-01-14 03:48] LABS: ALANINE AMINOTRANSFERASE 70 U/L (12-78); ALBUMIN 2.5 G/DL (3.4-5.0); ALBUMIN/GLOBULIN RATIO 0.6 (1.1-1.5); ALKALINE PHOSPHATASE 155 IU/L (46-116); ANION GAP 2 (8-16); ASPARTATE AMINO TRANSFERASE 32 U/L (10-37); BILIRUBIN,TOTAL 0.4 MG/DL (0.1-1.0); BLOOD UREA NITROGEN 43 MG/DL (7-18); BUN/CREATININE RATIO 52.4 (5.4-32.0); CALCIUM 9.1 MG/DL (8.5-10.1); CHLORIDE 94 MMOL/L (99-107); CREATININE 0.82 MG/DL (0.60-1.10); GLUCOSE 150 MG/DL (70-104); MAGNESIUM 1.9 MG/DL (1.5-2.4); PHOSPHORUS 4.8 MG/DL (2.3-4.5); POTASSIUM 3.5 MMOL/L (3.5-5.1); SODIUM 134 MMOL/L (135-145); TOTAL CARBON DIOXIDE 37.8 MMOL/L (24-32); TOTAL PROTEIN 6.9 G/DL (6.4-8.2); eGFR > 90 ML/MIN
[2019-01-14 04:18] LABS: TOTAL CELLS COUNTED 100
[2019-01-14 04:19] LABS: PLATELET ESTIMATE NORMAL; TOXIC GRANULATION 1+
[2019-01-14 04:21] LABS: LARGE PLATELETS FEW; POLYCHROMASIA FEW
--- NOTE | 2019-01-14 06:15 | NUR ---
Patient in room CICU 2010. I have received report from date night caregiver and had the opportunity to ask questions and assume patient care.
--- NOTE | 2019-01-14 06:27 | NUR ---
Problems reprioritized. Patient report given, questions answered & plan of care reviewed with Ella IYER. Updated Pt's via telephone.
[2019-01-14] MEDS: midodrine 5mg tablet PEG SCH ×4 (08:00→23:29)
[2019-01-14] MEDS: lactulose 20gm/30ml cup PEG SCH (08:00)
[2019-01-14] MEDS: heparin, porcine 5000 units/ml vial SQ SCH ×2 (08:56→20:37)
[2019-01-14] MEDS: lactobacillus rhamnosus 10,000 MMU CELLS/CAPSULE PEG SCH ×2 (08:56→20:38)
[2019-01-14] MEDS: pantoprazole 40 MG vial IV SCH (08:56)
[2019-01-14] MEDS: furosemide 40mg/4ml inj IV SCH ×2 (08:56→20:37)
[2019-01-14] MEDS: levoTHYROXINE 25mcg tablet PEG SCH (08:57)
[2019-01-14] MEDS: sennosides/docusate sodium tablet PEG SCH ×2 (08:57→20:38)
[2019-01-14] MEDS: acetaZOLAMIDE IV 500mg inj IV SCH ×2 (08:57→20:37)
[2019-01-14] MEDS: normal saline 1000ml 1,000 ML IV SCH (14:23)
--- NOTE | 2019-01-14 15:04 | NUR ---
Reassessment: Pt extubated. Recommend PEG tube feeding to continue as continues with Jevity 1.2 at 85 ml/hr, discussed with RN and RD discussed with MD at rounds to decrease water flush to 100 ml Q4H in view of sodium of 134. Pt and SO visited at bedside. SO confirms TF regimen of 2 cans Fibersource HN (500 mL total) TID with 1 syringe (60 mL) water flushes before and after each bolus feed. SO states pt sees an RD at the [facility] q few months or sooner PRN to help maintain appropriate feedings. SO reports that pt receives all medications through PEG as well. SO with no questions at this time, RD contact information provided. Will continue to follow. Recommendations: 1) Continuous TF via PEG using Jevity 1.2 with goal rate of 85 mL/hr will provide total volume of 2040 ml, 2448 cals, 113 g protein, 1646 ml water. 2) 100 mL water flush q 4 hours; Monitor Na given currently on the low end of WNL 3) Prealbumin q /; daily weights Addendum: 01/14/19 at [address] Amended: Links added.
--- NOTE | 2019-01-14 18:05 | NUR ---
Problems reprioritized. Patient report given, questions answered & plan of care reviewed with oncoming shift.
--- NOTE | 2019-01-14 22:30 | NUR ---
Pt wrote on paper: "end of life shot". Charge nurse notified.
--- NOTE | 2019-01-14 23:00 | NUR ---
Pt requesting medication "for sleep". Filiberto notified, new order written.
[2019-01-14] MEDS: temazepam 15mg capsule PO PRN (23:18)
[2019-01-15] VITALS (22 sets, daily range): BP systolic 80–149; BP diastolic 46–107
[2019-01-15] MEDS: piperacillin/tazo 3.375gm/50ml 50 ML IV SCH ×2 (00:30→08:52)
--- NOTE | 2019-01-15 01:00 | NUR ---
Pt requesting "more meds for sleep". Filiberto notified, new orders written.
[2019-01-15] MEDS ORDERED: temazepam 15mg capsule PO ONE (01:05)
--- NOTE | 2019-01-15 02:00 | NUR ---
Pt requesting "more meds". No meds ordered at this time. Linens changed, pt repositioned for comfort.
[2019-01-15] MEDS: methylPREDNISolone sod succ/PF 40mg inj. IV SCH ×2 (02:11→08:29)
[2019-01-15 03:04] LABS: ALANINE AMINOTRANSFERASE 69 U/L (12-78); ALBUMIN 2.2 G/DL (3.4-5.0); ALBUMIN/GLOBULIN RATIO 0.6 (1.1-1.5); ALKALINE PHOSPHATASE 123 IU/L (46-116); ANION GAP 3 (8-16); ASPARTATE AMINO TRANSFERASE 28 U/L (10-37); BILIRUBIN,TOTAL 0.3 MG/DL (0.1-1.0); BLOOD UREA NITROGEN 53 MG/DL (7-18); BUN/CREATININE RATIO 55.8 (5.4-32.0); CHLORIDE 96 MMOL/L (99-107); CREATININE 0.95 MG/DL (0.60-1.10); GLUCOSE 152 MG/DL (70-104); MAGNESIUM 2.1 MG/DL (1.5-2.4); PHOSPHORUS 5.4 MG/DL (2.3-4.5); POTASSIUM 3.5 MMOL/L (3.5-5.1); SODIUM 137 MMOL/L (135-145); TOTAL CARBON DIOXIDE 37.9 MMOL/L (24-32); TOTAL PROTEIN 5.9 G/DL (6.4-8.2); eGFR 78 ML/MIN
[2019-01-15 03:05] LABS: BASOPHILS % (AUTO) 0.1 % (0-1); EOSINOPHILS % (AUTO) 0 % (0-6); HEMATOCRIT 40.6 % (42.0-52.0); HEMOGLOBIN 13.4 g/dl (14.0-17.9); LYMPHOCYTES # (AUTO) 0.3 X10'3 (1.1-4.8); LYMPHOCYTES % (AUTO) 1.8 % (21-51); MEAN PLATELET VOLUME 9.2 FL (7.4-10.4); MONOCYTES # (AUTO) 0.6 X10'3 (0-0.9); MONOCYTES % (AUTO) 4.1 % (2-12); NEUTROPHILS # (AUTO) 13.4 X10'3 (1.8-7.7); PLATELET COUNT 276 X10'3 (140-440); RED BLOOD COUNT 4.18 X10'6 (4.70-6.10); WHITE BLOOD COUNT 14.3 X10'3 (4.5-11.0)
[2019-01-15] MEDS: ipratropium/albuterol 3ml nebule NEB SCH ×4 (03:11→19:55)
--- NOTE | 2019-01-15 06:30 | NUR ---
Patient in room CICU 2010. I have received report from SHIREEN Lakhani and had the opportunity to ask questions and assume patient care.
[2019-01-15 06:44] LABS: PLATELET ESTIMATE NORMAL; TOTAL CELLS COUNTED 100; TOXIC GRANULATION 1+
[2019-01-15] MEDS: lactulose 20gm/30ml cup PEG SCH (07:34)
[2019-01-15] MEDS: sennosides/docusate sodium tablet PEG SCH ×2 (07:34→20:00)
[2019-01-15] MEDS: midodrine 5mg tablet PEG SCH (08:17)
[2019-01-15] MEDS: lactobacillus rhamnosus 10,000 MMU CELLS/CAPSULE PEG SCH ×2 (08:17→20:25)
[2019-01-15] MEDS: levoTHYROXINE 25mcg tablet PEG SCH (08:17)
[2019-01-15] MEDS: pantoprazole 40 MG vial IV SCH (08:31)
[2019-01-15] MEDS: furosemide 40mg/4ml inj IV SCH (08:32)
[2019-01-15] MEDS: heparin, porcine 5000 units/ml vial SQ SCH ×2 (08:33→20:26)
[2019-01-15] MEDS: acetaZOLAMIDE IV 500mg inj IV SCH (08:35)
[2019-01-15] MEDS: normal saline 1000ml 1,000 ML IV SCH (09:08)
[2019-01-15 16:42] LABS: MAGNESIUM 2.3 MG/DL (1.5-2.4); POTASSIUM 3.7 MMOL/L (3.5-5.1)
--- NOTE | 2019-01-15 17:47 | NUR ---
VSS throughout the day. Pt in SR with frequent PVC's and occasionally will have bigeminy PVC's. K3.5 and MAG 2.1. rechecked K & Mag this afternoons and levels K3.7 and Mag 2.3 s/p Lasix administration this AM. Lasix has since been d/c'd. Pt denies pain. Good Urine output noted. three watery BM's noted this shift. Lactulose and Senakot held this AM from previous report of loose BM. Buttocks reddened d/t loose stool, cream applied. Pt turned in bed. Up to chair for several hours this afternoon. BP tolerated activity, previously hypotensive upon standing. Tolerating tube feeds with <5mL of residual noted upon assessment before free water flushes. BG 143 this AM and afternoon. Has not met hyperglycemic protocol yet this admission. Pt continued to request something to "sedate" him today. RN explained the importance of staying awake during the day and maintaining a healthy sleep wake cycle. Pt states he only slept 1.5 hours last night. RN stated she would pass on to night RN that pt requests his Resteril early this evening. Pt verbalized understanding.
--- NOTE | 2019-01-15 18:32 | NUR ---
Problems reprioritized. Patient report given, questions answered & plan of care reviewed with SHIREEN Gómez.
[2019-01-15] MEDS: temazepam 15mg capsule PO PRN (20:25)
[2019-01-16] VITALS (24 sets, daily range): BP systolic 80–162; BP diastolic 44–82
[2019-01-16] MEDS: piperacillin/tazo 3.375gm/50ml 50 ML IV SCH ×3 (02:31→15:04)
[2019-01-16] MEDS: midodrine 5mg tablet PEG SCH ×3 (02:31→15:04)
[2019-01-16] MEDS: ipratropium/albuterol 3ml nebule NEB SCH ×4 (03:23→20:55)
[2019-01-16 03:44] LABS: BASOPHILS % (AUTO) 0.1 % (0-1); EOSINOPHILS % (AUTO) 0.1 % (0-6); LYMPHOCYTES # (AUTO) 0.6 X10'3 (1.1-4.8); NEUTROPHILS # (AUTO) 14.1 X10'3 (1.8-7.7)
[2019-01-16 03:45] LABS: ALANINE AMINOTRANSFERASE 75 U/L (12-78); ALBUMIN 2.3 G/DL (3.4-5.0); ALBUMIN/GLOBULIN RATIO 0.6 (1.1-1.5); ALKALINE PHOSPHATASE 118 IU/L (46-116); ANION GAP 3 (8-16); ASPARTATE AMINO TRANSFERASE 28 U/L (10-37); BILIRUBIN,TOTAL 0.3 MG/DL (0.1-1.0); BLOOD UREA NITROGEN 52 MG/DL (7-18); BUN/CREATININE RATIO 64.2 (5.4-32.0); CALCIUM 9.1 MG/DL (8.5-10.1); CHLORIDE 98 MMOL/L (99-107); CREATININE 0.81 MG/DL (0.60-1.10); GLUCOSE 132 MG/DL (70-104); MAGNESIUM 2.1 MG/DL (1.5-2.4); PHOSPHORUS 4.2 MG/DL (2.3-4.5); POTASSIUM 3.3 MMOL/L (3.5-5.1); SODIUM 137 MMOL/L (135-145); TOTAL CARBON DIOXIDE 36.1 MMOL/L (24-32); eGFR > 90 ML/MIN
[2019-01-16 03:48] LABS: HEMATOCRIT 43.6 % (42.0-52.0); HEMOGLOBIN 14.5 g/dl (14.0-17.9); MEAN CORPUSCULAR HEMOGLOBIN 32.4 PG (27.0-31.0); MEAN CORPUSCULAR HGB CONC 33.1 g/dL (33.0-36.5); MEAN CORPUSCULAR VOLUME 97.8 FL (78-98); MEAN PLATELET VOLUME 9.2 FL (7.4-10.4); MONOCYTES # (AUTO) 0.9 X10'3 (0-0.9); MONOCYTES % (AUTO) 5.8 % (2-12); PLATELET COUNT 336 X10'3 (140-440); RED BLOOD COUNT 4.46 X10'6 (4.70-6.10); WHITE BLOOD COUNT 15.6 X10'3 (4.5-11.0)
[2019-01-16 06:38] LABS: ANISOCYTOSIS 1+; LARGE PLATELETS FEW; PLATELET ESTIMATE NORMAL; TOTAL CELLS COUNTED 100; TOXIC GRANULATION 1+
[2019-01-16] MEDS: lactulose 20gm/30ml cup PEG SCH (06:44)
[2019-01-16] MEDS: pantoprazole 40 MG vial IV SCH (07:36)
[2019-01-16] MEDS: lactobacillus rhamnosus 10,000 MMU CELLS/CAPSULE PEG SCH ×2 (07:37→20:24)
[2019-01-16] MEDS: predniSONE 20 mg tablet PO SCH (07:37)
[2019-01-16] MEDS: heparin, porcine 5000 units/ml vial SQ SCH ×2 (07:37→20:25)
[2019-01-16] MEDS: levoTHYROXINE 25mcg tablet PEG SCH (07:37)
[2019-01-16] MEDS: sennosides/docusate sodium tablet PEG SCH ×2 (07:37→20:24)
[2019-01-16] MEDS: normal saline 1000ml 1,000 ML IV SCH (10:49)
--- NOTE | 2019-01-16 18:30 | NUR ---
Patient in room CICU 2010. I have received report from Filemon IYER and had the opportunity to ask questions and assume patient care. Patient sitting in bed, alert/oriented x4. Expressing concern about not having a bowel movement "in a couple of days". Patient requesting laxative. Will administer with PM meds. BP 119/76 via automatic cuff, HR in 90s in sinus rhythm. Will continue to monitor.
[2019-01-16] MEDS: temazepam 15mg capsule PO PRN (20:24)
[2019-01-17] VITALS (23 sets, daily range): BP systolic 89–142; BP diastolic 53–83
[2019-01-17] MEDS: midodrine 5mg tablet PEG SCH ×3 (00:09→16:00)
[2019-01-17] MEDS: piperacillin/tazo 3.375gm/50ml 50 ML IV SCH ×2 (00:09→08:46)
[2019-01-17] MEDS ORDERED: temazepam 15mg capsule PO ONE (02:00)
--- NOTE | 2019-01-17 02:00 | NUR ---
Patient stating he is still having difficulty sleeping despite administration of sleep aid. Notified Filiberto Durant NP, states to okay to repeat temazepam dose x1 once.
[2019-01-17] MEDS: ipratropium/albuterol 3ml nebule NEB SCH ×4 (03:02→21:15)
[2019-01-17 03:16] LABS: BASOPHILS % (AUTO) 0.1 % (0-1); EOSINOPHILS % (AUTO) 0.1 % (0-6); HEMATOCRIT 42.5 % (42.0-52.0); HEMOGLOBIN 13.8 g/dl (14.0-17.9); LYMPHOCYTES # (AUTO) 0.6 X10'3 (1.1-4.8); LYMPHOCYTES % (AUTO) 4.2 % (21-51); MEAN CORPUSCULAR HGB CONC 32.6 g/dL (33.0-36.5); MEAN CORPUSCULAR VOLUME 98.3 FL (78-98); MEAN PLATELET VOLUME 8.8 FL (7.4-10.4); MONOCYTES # (AUTO) 0.9 X10'3 (0-0.9); NEUTROPHILS # (AUTO) 12.9 X10'3 (1.8-7.7); NEUTROPHILS % (AUTO) 89.6 % (42-75); PLATELET COUNT 328 X10'3 (140-440); RED BLOOD COUNT 4.32 X10'6 (4.70-6.10); RED CELL DISTRIBUTION WIDTH 14.4 % (11.5-14.5); WHITE BLOOD COUNT 14.4 X10'3 (4.5-11.0)
[2019-01-17 03:26] LABS: ALANINE AMINOTRANSFERASE 65 U/L (12-78); ALBUMIN 2.2 G/DL (3.4-5.0); ALBUMIN/GLOBULIN RATIO 0.6 (1.1-1.5); ALKALINE PHOSPHATASE 108 IU/L (46-116); ANION GAP -2 (8-16); ASPARTATE AMINO TRANSFERASE 23 U/L (10-37); BILIRUBIN,TOTAL 0.2 MG/DL (0.1-1.0); BLOOD UREA NITROGEN 41 MG/DL (7-18); BUN/CREATININE RATIO 56.9 (5.4-32.0); CALCIUM 8.5 MG/DL (8.5-10.1); CHLORIDE 101 MMOL/L (99-107); CREATININE 0.72 MG/DL (0.60-1.10); GLUCOSE 123 MG/DL (70-104); PHOSPHORUS 3.2 MG/DL (2.3-4.5); PREALBUMIN 32.7 MG/DL (19-36); SODIUM 138 MMOL/L (135-145); TOTAL PROTEIN 5.7 G/DL (6.4-8.2); eGFR > 90 ML/MIN
--- NOTE | 2019-01-17 06:27 | NUR ---
Problems reprioritized. Patient report given, questions answered & plan of care reviewed with Keon IYER.
--- NOTE | 2019-01-17 06:30 | NUR ---
Patient in room CICU 2010. I have received report from shift mgr rn and had the opportunity to ask questions and assume patient care.
[2019-01-17] MEDS: lactulose 20gm/30ml cup PEG SCH (08:00)
[2019-01-17] MEDS: heparin, porcine 5000 units/ml vial SQ SCH ×2 (08:44→20:48)
[2019-01-17] MEDS: pantoprazole 40 MG vial IV SCH (08:44)
[2019-01-17] MEDS: lactobacillus rhamnosus 10,000 MMU CELLS/CAPSULE PEG SCH ×2 (08:44→20:47)
[2019-01-17] MEDS: levoTHYROXINE 25mcg tablet PEG SCH (08:45)
[2019-01-17] MEDS: predniSONE 20 mg tablet PO SCH (08:46)
[2019-01-17] MEDS: sennosides/docusate sodium tablet PEG SCH ×2 (08:46→20:47)
--- NOTE | 2019-01-17 09:00 | NUR ---
pt stating that he wished to "" states that he is tired and does not think that he is going to make it, emotional support given, attempted to sit in chair, pt dangled at edge of bed, but unable to hold self upright very fatigued this morning, and only able to do a stand with a two person assist. returned back to bed, sats low lungs very coarse, weak cough effort and poor IS only able to get to 500cc, returned back to bed and bed moved into chair position.
[2019-01-17] MEDS ORDERED: temazepam 15mg capsule PEG PRN (09:40)
[2019-01-17] MEDS ORDERED: predniSONE 20 mg tablet PEG SCH (09:40)
--- NOTE | 2019-01-17 11:05 | NUR ---
Reassessment: Continuous PEG tube feedings with Jevity 1.2 at 85 ml/hr well tolerated with gastric residual volume WNL. Sodium is WNL. Patient having moderate liquid stools daily, has begun on fiber containing formula on three days ago and will aid in more formed stools. Will continue to follow. Recommendations: 1) Continuous TF via PEG using Jevity 1.2 with goal rate of 85 mL/hr will provide total volume of 2040 ml, 2448 cals, 113 g protein, 1646 ml water. 2) 100 mL water flush q 4 hours; Monitor Na given currently on the low end of WNL 3) Prealbumin q /; daily weights Addendum: 01/17/19 at [address] Amended: Links added.
--- NOTE | 2019-01-17 15:51 | NUR ---
Extended PIV inserted to left upper arm brachial vein x 1 attempt after 1 failed attempt to the left cephalic vein. Christelle well Addendum: 01/17/19 at 1552 by Mary Coleman RN Amended: Links added.
--- NOTE | 2019-01-17 18:15 | NUR ---
Patient in room CICU 2010. I have received report from Keon IYER and had the opportunity to ask questions and assume patient care. Patient resting in bed comfortably with eyes closed, saturating at 100% on 3L NC with cannula in mouth due to mouth breathing. BP 119/63 via automatic cuff. Patient arousable to voice, falls asleep almost instantly after being woken up. Will continue to monitor patient.
--- NOTE | 2019-01-17 18:25 | NUR ---
[facility] I have received report from Keon IYER and had the opportunity to ask questions and assume patient care. Patient resting in bed, alert/oriented x3. Complaining of pain to back, declining to take pain medication at this time. 1 unit PRBC infusing, will infuse second unit as ordered. BP 136/57 via arterial line, patient saturating at 9 Addendum: 01/17/19 at 184 by Obdulia Alvarado RN (note accidentally saved without finishing) patient saturating at 96% on room air. Wound vac site CDI with good seal noted, surrounding skin hard, edematous, reddened around site. Will continue to monitor patient closely. Addendum: 01/17/19 at 1846 by Obdulia Alvarado RN INCORRECT PATIENT. DISREGARD NOTE.
[2019-01-17] MEDS: venlafaxine 25mg tablet PEG SCH (20:47)
[2019-01-17] MEDS: normal saline 1000ml 1,000 ML IV SCH (22:56)
[2019-01-18] VITALS (23 sets, daily range): BP systolic 101–156; BP diastolic 58–81
[2019-01-18] MEDS: midodrine 5mg tablet PEG SCH ×4 (00:55→23:41)
[2019-01-18] MEDS: piperacillin/tazo 3.375gm/50ml 50 ML IV SCH ×4 (00:56→23:41)
[2019-01-18] MEDS: ipratropium/albuterol 3ml nebule NEB SCH ×4 (02:56→20:50)
[2019-01-18 05:18] LABS: BASOPHILS % (AUTO) 0.1 % (0-1); EOSINOPHILS % (AUTO) 0.1 % (0-6); HEMOGLOBIN 12.6 g/dl (14.0-17.9); LYMPHOCYTES # (AUTO) 0.3 X10'3 (1.1-4.8); LYMPHOCYTES % (AUTO) 2.3 % (21-51); MEAN CORPUSCULAR HEMOGLOBIN 32.5 PG (27.0-31.0); MEAN CORPUSCULAR VOLUME 98.2 FL (78-98); MEAN PLATELET VOLUME 8.7 FL (7.4-10.4); MONOCYTES # (AUTO) 0.8 X10'3 (0-0.9); MONOCYTES % (AUTO) 6.3 % (2-12); NEUTROPHILS # (AUTO) 11.5 X10'3 (1.8-7.7); NEUTROPHILS % (AUTO) 91.2 % (42-75); PLATELET COUNT 290 X10'3 (140-440); RED BLOOD COUNT 3.87 X10'6 (4.70-6.10); WHITE BLOOD COUNT 12.6 X10'3 (4.5-11.0)
--- NOTE | 2019-01-18 05:26 | NUR ---
Patient requesting additional stool softeners, states he feels "full". Patient has not had BM since 01/15. Will administer suppository as ordered in eMAR.
[2019-01-18 05:39] LABS: ALANINE AMINOTRANSFERASE 55 U/L (12-78); ALBUMIN/GLOBULIN RATIO 0.6 (1.1-1.5); ALKALINE PHOSPHATASE 101 IU/L (46-116); ANION GAP -5 (8-16); ASPARTATE AMINO TRANSFERASE 19 U/L (10-37); BILIRUBIN,TOTAL 0.2 MG/DL (0.1-1.0); BLOOD UREA NITROGEN 34 MG/DL (7-18); BUN/CREATININE RATIO 55.7 (5.4-32.0); CALCIUM 8.5 MG/DL (8.5-10.1); CHLORIDE 101 MMOL/L (99-107); CREATININE 0.61 MG/DL (0.60-1.10); GLUCOSE 137 MG/DL (70-104); MAGNESIUM 1.9 MG/DL (1.5-2.4); PHOSPHORUS 2.4 MG/DL (2.3-4.5); POTASSIUM 4.7 MMOL/L (3.5-5.1); SODIUM 139 MMOL/L (135-145); TOTAL PROTEIN 5.4 G/DL (6.4-8.2); eGFR > 90 ML/MIN
--- NOTE | 2019-01-18 06:25 | NUR ---
Notified Filiberto Durant NP regarding patient's critical CO2 of 43.0. No new orders given at this time.
--- NOTE | 2019-01-18 06:26 | NUR ---
Problems reprioritized. Patient report given, questions answered & plan of care reviewed with Keon IYER.
--- NOTE | 2019-01-18 06:30 | NUR ---
Patient in room CICU 2010. I have received report from slot shift supervisor rn and had the opportunity to ask questions and assume patient care.
[2019-01-18] MEDS: pantoprazole 40 MG vial IV SCH (07:55)
[2019-01-18] MEDS: heparin, porcine 5000 units/ml vial SQ SCH ×2 (07:55→21:10)
[2019-01-18] MEDS: venlafaxine 25mg tablet PEG SCH ×2 (07:56→21:09)
[2019-01-18] MEDS: lactobacillus rhamnosus 10,000 MMU CELLS/CAPSULE PEG SCH ×2 (07:56→21:09)
[2019-01-18] MEDS: levoTHYROXINE 25mcg tablet PEG SCH (07:56)
[2019-01-18] MEDS: lactulose 20gm/30ml cup PEG SCH (08:00)
[2019-01-18] MEDS: sennosides/docusate sodium tablet PEG SCH ×2 (08:00→21:09)
--- NOTE | 2019-01-18 08:30 | NUR ---
more awake and alert today compared to yesterday, smiling, and joking with nurse. Pt is asking when he will be going upstairs to nursing unit.
[2019-01-18 10:01] LABS: ABG BASE EXCESS 17.1 mmol/L (-2.0-3.0); ABG HCO3 46.8 mmol/L (22.0-26.0); ABG OXYGEN SATURATION 97.6 % (95-98); ABG PCO2 (T) 84.5 mmHg (35.0-48.0); ABG PH (T) 7.361 (7.350-7.450); ALLEN'S TEST Positive; FCOHb 0.2 % (0.5-1.5); FLOW 2 L/min; FMetHb 0.2 % (0.3-1.12); FO2Hb 97.2 % (94-100); TOTAL HEMOGLOBIN 13.2 G/dl (14.0-18.0)
--- NOTE | 2019-01-18 18:20 | NUR ---
Patient in room CICU 2010. I have received report from Janell Parekh and had the opportunity to ask questions and assume patient care. Patient laying in bed, awake/alert and pleasant. Offers no complaints at this time. Will continue to monitor patient.
[2019-01-19] VITALS (24 sets, daily range): BP systolic 105–157; BP diastolic 67–87
[2019-01-19] MEDS: ipratropium/albuterol 3ml nebule NEB SCH ×4 (02:41→22:05)
--- NOTE | 2019-01-19 03:09 | NUR ---
0215: Patient reporting feeling like there is a "worm" in the back of his throat. Upon inspection, large dried mucous plug observed in back of throat around uvula. Attempted to extract plug with suction and mouth swabs. RN was able to extract it [facility] out, but plug was subsequently unable to be seen in mouth, possibly after patient swallowed plug. Patient began to desaturate as low as 86% on 2LNC, increased O2 to 3.5% and saturation only came up to 93% compared to prior readings of 98-100 on 2LNC. Lung sounds sound more coarse now in apex. RT notified and at bedside, breathing tx performed and patient instructed to cough. Patient has very weak cough, not able to cough anything up. Patient saturation dropped second time down to 86%, came back up spontaneously to 93%. Notified Filiberto Durant YARN CLEANER regarding situation, order received to NT suction patient to clear secretions. Will notify RT.
[2019-01-19 04:58] LABS: BASOPHILS % (AUTO) 0.1 % (0-1); EOSINOPHILS % (AUTO) 0.2 % (0-6); HEMATOCRIT 35.7 % (42.0-52.0); LYMPHOCYTES # (AUTO) 0.3 X10'3 (1.1-4.8); LYMPHOCYTES % (AUTO) 2.9 % (21-51); MEAN CORPUSCULAR HEMOGLOBIN 32.8 PG (27.0-31.0); MEAN CORPUSCULAR HGB CONC 33.6 g/dL (33.0-36.5); MEAN CORPUSCULAR VOLUME 97.7 FL (78-98); MEAN PLATELET VOLUME 8.4 FL (7.4-10.4); MONOCYTES # (AUTO) 0.8 X10'3 (0-0.9); MONOCYTES % (AUTO) 7.5 % (2-12); NEUTROPHILS # (AUTO) 9.9 X10'3 (1.8-7.7); NEUTROPHILS % (AUTO) 89.3 % (42-75); PLATELET COUNT 321 X10'3 (140-440); RED BLOOD COUNT 3.65 X10'6 (4.70-6.10); WHITE BLOOD COUNT 11.1 X10'3 (4.5-11.0)
[2019-01-19 05:09] LABS: ALANINE AMINOTRANSFERASE 54 U/L (12-78); ALBUMIN 2.2 G/DL (3.4-5.0); ALBUMIN/GLOBULIN RATIO 0.6 (1.1-1.5); ALKALINE PHOSPHATASE 91 IU/L (46-116); ASPARTATE AMINO TRANSFERASE 22 U/L (10-37); BILIRUBIN,TOTAL 0.2 MG/DL (0.1-1.0); BLOOD UREA NITROGEN 32 MG/DL (7-18); BUN/CREATININE RATIO 51.6 (5.4-32.0); CALCIUM 8.4 MG/DL (8.5-10.1); CHLORIDE 99 MMOL/L (99-107); CREATININE 0.62 MG/DL (0.60-1.10); GLUCOSE 136 MG/DL (70-104); MAGNESIUM 1.8 MG/DL (1.5-2.4); PHOSPHORUS 2.3 MG/DL (2.3-4.5); POTASSIUM 4.6 MMOL/L (3.5-5.1); SODIUM 138 MMOL/L (135-145); TOTAL PROTEIN 5.6 G/DL (6.4-8.2); eGFR > 90 ML/MIN
[2019-01-19 05:49] LABS: ANION GAP -7 (8-16)
[2019-01-19 06:08] LABS: TOTAL CARBON DIOXIDE 45.9 MMOL/L (24-32)
--- NOTE | 2019-01-19 06:33 | NUR ---
Spoke with Filiberto Durant WET MACHINE CUTTER regarding patient's critical co2 on AM labs. States to order ABG.
--- NOTE | 2019-01-19 06:34 | NUR ---
Problems reprioritized. Patient report given, questions answered & plan of care reviewed with Roro IYER.
[2019-01-19] MEDS: pantoprazole 40 MG vial IV SCH (07:40)
[2019-01-19] MEDS: venlafaxine 25mg tablet PEG SCH ×2 (07:41→20:54)
[2019-01-19] MEDS: lactulose 20gm/30ml cup PEG SCH (07:41)
[2019-01-19] MEDS: heparin, porcine 5000 units/ml vial SQ SCH ×2 (07:41→20:53)
[2019-01-19] MEDS: sennosides/docusate sodium tablet PEG SCH ×2 (07:41→20:54)
[2019-01-19] MEDS: levoTHYROXINE 25mcg tablet PEG SCH (07:41)
[2019-01-19] MEDS: midodrine 5mg tablet PEG SCH ×2 (07:41→16:14)
[2019-01-19] MEDS: piperacillin/tazo 3.375gm/50ml 50 ML IV SCH ×2 (07:41→16:14)
[2019-01-19] MEDS: predniSONE 20 mg tablet PEG SCH (07:41)
[2019-01-19] MEDS: lactobacillus rhamnosus 10,000 MMU CELLS/CAPSULE PEG SCH ×2 (07:42→20:53)
[2019-01-19 09:05] LABS: ABG BASE EXCESS 21.2 mmol/L (-2.0-3.0); ABG HCO3 52.7 mmol/L (22.0-26.0); ABG PCO2 (T) 104.4 mmHg (35.0-48.0); ABG PH (T) 7.321 (7.350-7.450); ALLEN'S TEST Positive; FCOHb 0.3 % (0.5-1.5); FLOW 3 L/min; FMetHb 0.2 % (0.3-1.12); FO2Hb 92.5 % (94-100); TOTAL HEMOGLOBIN 12.8 G/dl (14.0-18.0)
[2019-01-19 11:20] LABS: ABG BASE EXCESS 20.5 mmol/L (-2.0-3.0); ABG HCO3 50.6 mmol/L (22.0-26.0); ABG OXYGEN SATURATION 95.6 % (95-98); ABG PCO2 (T) 90.1 mmHg (35.0-48.0); ABG PH (T) 7.367 (7.350-7.450); ABG PO2 (T) 76.4 mmHg (83-108); ALLEN'S TEST Positive; FCOHb 0.1 % (0.5-1.5); FMetHb 0.2 % (0.3-1.12); FO2Hb 95.3 % (94-100); RESPIRATORY RATE 20 b/min; RESPIRATORY RATE (OBSERVED) 27 b/min; TOTAL HEMOGLOBIN 12.6 G/dl (14.0-18.0)
--- NOTE | 2019-01-19 11:30 | NUR ---
Spoke to patient and patients . Patient states that he does not want a breathing tube down his throat. at bedside and aware of patients wishes and agrees. Dr. Lowery notified. Per Dr. Lowery order put in fro DNI code status for Dr. Loweyr.
--- NOTE | 2019-01-19 12:35 | NUR ---
Patient refusing BiPap at this time.
--- NOTE | 2019-01-19 12:36 | NUR ---
Taken off Bipap and placed on 3L NC
--- NOTE | 2019-01-19 14:29 | NUR ---
Patient worked with PT, up to chair, walked, satting 94% on 3LNC and alert, oriented x 4. Will continue to monitor.
--- NOTE | 2019-01-19 17:27 | NUR ---
Patient had conversation with and decided he wanted to be full code and be intubated if needed. Code status changed. MD aware and agrees.
--- NOTE | 2019-01-19 18:47 | NUR ---
Problems reprioritized. Patient report given, questions answered & plan of care reviewed with Mac RN.
[2019-01-20] VITALS (23 sets, daily range): BP systolic 108–173; BP diastolic 63–102
[2019-01-20] MEDS: midodrine 5mg tablet PEG SCH ×3 (00:14→16:09)
[2019-01-20] MEDS: piperacillin/tazo 3.375gm/50ml 50 ML IV SCH ×3 (00:14→16:09)
[2019-01-20] MEDS: ipratropium/albuterol 3ml nebule NEB SCH ×4 (03:14→21:24)
[2019-01-20 04:35] LABS: BASOPHILS % (AUTO) 0 % (0-1); EOSINOPHILS % (AUTO) 0.2 % (0-6); HEMOGLOBIN 12.1 g/dl (14.0-17.9); LYMPHOCYTES # (AUTO) 0.4 X10'3 (1.1-4.8); LYMPHOCYTES % (AUTO) 3.4 % (21-51); MEAN CORPUSCULAR HEMOGLOBIN 32.5 PG (27.0-31.0); MEAN CORPUSCULAR HGB CONC 32.9 g/dL (33.0-36.5); MEAN CORPUSCULAR VOLUME 98.8 FL (78-98); MONOCYTES % (AUTO) 8.4 % (2-12); NEUTROPHILS # (AUTO) 10.8 X10'3 (1.8-7.7); PLATELET COUNT 342 X10'3 (140-440); RED BLOOD COUNT 3.74 X10'6 (4.70-6.10); WHITE BLOOD COUNT 12.2 X10'3 (4.5-11.0)
--- NOTE | 2019-01-20 05:00 | NUR ---
RN Note -Pt tolerated BiPAP for 30 to 40 minutes at a time but was too anxious to keep it on much longer. Pt expressed that he is afraid that he will suffocate if he falls asleep with BiPAP on. Educated pt many times and tried to calm his fears.
[2019-01-20 05:05] LABS: ALANINE AMINOTRANSFERASE 59 U/L (12-78); ALBUMIN 2.3 G/DL (3.4-5.0); ALBUMIN/GLOBULIN RATIO 0.6 (1.1-1.5); ALKALINE PHOSPHATASE 90 IU/L (46-116); ASPARTATE AMINO TRANSFERASE 28 U/L (10-37); BILIRUBIN,TOTAL 0.3 MG/DL (0.1-1.0); BLOOD UREA NITROGEN 28 MG/DL (7-18); BUN/CREATININE RATIO 47.5 (5.4-32.0); CALCIUM 9.3 MG/DL (8.5-10.1); CHLORIDE 95 MMOL/L (99-107); CREATININE 0.59 MG/DL (0.60-1.10); GLUCOSE 79 MG/DL (70-104); MAGNESIUM 1.9 MG/DL (1.5-2.4); PHOSPHORUS 2.5 MG/DL (2.3-4.5); POTASSIUM 4.8 MMOL/L (3.5-5.1); PREALBUMIN 25.4 MG/DL (19-36); SODIUM 137 MMOL/L (135-145); TOTAL PROTEIN 5.9 G/DL (6.4-8.2); eGFR > 90 ML/MIN
[2019-01-20 05:09] LABS: ANION GAP -3 (8-16); TOTAL CARBON DIOXIDE 44.5 MMOL/L (24-32)
[2019-01-20 07:16] LABS: ABG BASE EXCESS 25.9 mmol/L (-2.0-3.0); ABG OXYGEN SATURATION 88.6 % (95-98); ABG PCO2 (T) 120.7 mmHg (35.0-48.0); ABG PH (T) 7.307 (7.350-7.450); ABG PO2 (T) 56.4 mmHg (83-108); ALLEN'S TEST Positive; FCOHb 0.4 % (0.5-1.5); FLOW 3 L/min; FMetHb 0.2 % (0.3-1.12); FO2Hb 88.1 % (94-100); TOTAL HEMOGLOBIN 13.2 G/dl (14.0-18.0)
[2019-01-20] MEDS: lactulose 20gm/30ml cup PEG SCH (07:19)
[2019-01-20] MEDS: venlafaxine 25mg tablet PEG SCH ×2 (07:20→20:44)
[2019-01-20] MEDS: sennosides/docusate sodium tablet PEG SCH ×2 (07:20→20:44)
[2019-01-20] MEDS: pantoprazole 40 MG vial IV SCH (07:20)
[2019-01-20] MEDS: lactobacillus rhamnosus 10,000 MMU CELLS/CAPSULE PEG SCH ×2 (07:20→20:44)
[2019-01-20] MEDS: heparin, porcine 5000 units/ml vial SQ SCH ×2 (07:20→20:44)
[2019-01-20] MEDS: levoTHYROXINE 25mcg tablet PEG SCH (07:20)
[2019-01-20] MEDS: predniSONE 20 mg tablet PEG SCH (07:23)
[2019-01-20] MEDS: ondansetron/PF 4mg/2ml inj IV PRN (10:35)
--- NOTE | 2019-01-20 12:25 | NUR ---
Reassessment: Continuous PEG tube feedings with Jevity 1.2 at 85 ml/hr well tolerated with gastric residual volume WNL. Sodium is WNL. Patient documented as having moderate liquid stools daily, discussed with bedside RN who reports the last BM was actually yesterday. Patient receiving fiber containing formula will aid in more formed stools. Patient received lactulose and senna today for bowel care, may cause liquid stools. Will continue to follow. Recommendations: 1) Continuous TF via PEG using Jevity 1.2 with goal rate of 85 mL/hr will provide total volume of 2040 ml, 2448 cals, 113 g protein, 1646 ml water. 2) 100 mL water flush q 4 hours 3) Prealbumin q /; daily weights Addendum: 01/20/19 at [address] Amended: Links added.
[2019-01-20 15:21] LABS: ABG HCO3 47.9 mmol/L (22.0-26.0); ABG OXYGEN SATURATION 96.4 % (95-98); ABG PCO2 (T) 78.9 mmHg (35.0-48.0); ABG PH (T) 7.402 (7.350-7.450); ABG PO2 (T) 84.4 mmHg (83-108); ALLEN'S TEST Positive; FCOHb 0.4 % (0.5-1.5); FMetHb 0.3 % (0.3-1.12); FO2Hb 95.7 % (94-100); MINUTE VOLUME 9 L/min; PATIENT TEMPERATURE 37.2; RESPIRATORY RATE 20 b/min; RESPIRATORY RATE (OBSERVED) 21 b/min; TIDAL VOLUME 428 mL; TOTAL HEMOGLOBIN 13.1 G/dl (14.0-18.0)
--- NOTE | 2019-01-20 18:30 | NUR ---
Problems reprioritized. Patient report given, questions answered & plan of care reviewed with Mac RN.
[2019-01-20] MEDS ORDERED: LIDOcaine Viscous 15ml cup MM PRN (20:10)
[2019-01-21] VITALS (24 sets, daily range): BP systolic 92–139; BP diastolic 57–88
[2019-01-21] MEDS: midodrine 5mg tablet PEG SCH ×3 (00:55→15:55)
[2019-01-21] MEDS: piperacillin/tazo 3.375gm/50ml 50 ML IV SCH ×2 (00:56→08:40)
[2019-01-21] MEDS: ipratropium/albuterol 3ml nebule NEB SCH ×4 (03:15→21:43)
[2019-01-21 05:30] LABS: ABG BASE EXCESS 20.8 mmol/L (-2.0-3.0); ABG HCO3 49.4 mmol/L (22.0-26.0); ABG OXYGEN SATURATION 96.1 % (95-98); ABG PCO2 (T) 76.6 mmHg (35.0-48.0); ABG PH (T) 7.429 (7.350-7.450); ABG PO2 (T) 82.1 mmHg (83-108); FCOHb 0.2 % (0.5-1.5); FMetHb 0.2 % (0.3-1.12); FO2Hb 95.7 % (94-100); MINUTE VOLUME 15 L/min; PATIENT TEMPERATURE 37.3; RESPIRATORY RATE 20 b/min; RESPIRATORY RATE (OBSERVED) 21 b/min
[2019-01-21 06:50] LABS: BASOPHILS % (AUTO) 0.3 % (0-1); EOSINOPHILS % (AUTO) 0.2 % (0-6); HEMATOCRIT 37.2 % (42.0-52.0); HEMOGLOBIN 12.4 g/dl (14.0-17.9); LYMPHOCYTES # (AUTO) 0.6 X10'3 (1.1-4.8); LYMPHOCYTES % (AUTO) 5.2 % (21-51); MEAN CORPUSCULAR HEMOGLOBIN 32.4 PG (27.0-31.0); MEAN CORPUSCULAR HGB CONC 33.3 g/dL (33.0-36.5); MEAN CORPUSCULAR VOLUME 97.4 FL (78-98); MEAN PLATELET VOLUME 8.3 FL (7.4-10.4); MONOCYTES # (AUTO) 1.1 X10'3 (0-0.9); MONOCYTES % (AUTO) 9.6 % (2-12); NEUTROPHILS # (AUTO) 9.9 X10'3 (1.8-7.7); NEUTROPHILS % (AUTO) 84.7 % (42-75); PLATELET COUNT 358 X10'3 (140-440); RED BLOOD COUNT 3.82 X10'6 (4.70-6.10); RED CELL DISTRIBUTION WIDTH 14.1 % (11.5-14.5); WHITE BLOOD COUNT 11.7 X10'3 (4.5-11.0)
[2019-01-21 07:07] LABS: ALANINE AMINOTRANSFERASE 53 U/L (12-78); ALBUMIN 2.3 G/DL (3.4-5.0); ALBUMIN/GLOBULIN RATIO 0.6 (1.1-1.5); ALKALINE PHOSPHATASE 99 IU/L (46-116); ANION GAP -1 (8-16); ASPARTATE AMINO TRANSFERASE 26 U/L (10-37); BILIRUBIN,TOTAL 0.4 MG/DL (0.1-1.0); BLOOD UREA NITROGEN 28 MG/DL (7-18); BUN/CREATININE RATIO 44.4 (5.4-32.0); CALCIUM 9.3 MG/DL (8.5-10.1); CHLORIDE 93 MMOL/L (99-107); CREATININE 0.63 MG/DL (0.60-1.10); GLUCOSE 103 MG/DL (70-104); PHOSPHORUS 2.6 MG/DL (2.3-4.5); POTASSIUM 4.5 MMOL/L (3.5-5.1); SODIUM 135 MMOL/L (135-145); TOTAL PROTEIN 6.1 G/DL (6.4-8.2); eGFR > 90 ML/MIN
[2019-01-21 07:15] LABS: TOTAL CARBON DIOXIDE 42.9 MMOL/L (24-32)
[2019-01-21] MEDS: sennosides/docusate sodium tablet PEG SCH ×2 (08:00→20:00)
[2019-01-21] MEDS: lactulose 20gm/30ml cup PEG SCH (08:00)
[2019-01-21] MEDS: pantoprazole 40 MG vial IV SCH (08:40)
[2019-01-21] MEDS: levoTHYROXINE 25mcg tablet PEG SCH (08:40)
[2019-01-21] MEDS: predniSONE 20 mg tablet PEG SCH (08:41)
[2019-01-21] MEDS: venlafaxine 25mg tablet PEG SCH ×2 (08:41→22:05)
[2019-01-21] MEDS: lactobacillus rhamnosus 10,000 MMU CELLS/CAPSULE PEG SCH ×2 (08:41→22:04)
[2019-01-21] MEDS: heparin, porcine 5000 units/ml vial SQ SCH ×2 (08:42→22:04)
[2019-01-21] MEDS ORDERED: acetaZOLAMIDE IV 500mg inj IV SCH (09:15)
--- NOTE | 2019-01-21 10:00 | NUR ---
paTIENT IS NOT DIABETIC AND HAS NEVER MET PROTOCOL HIS ENTIRE STAY HERE AND TUBE FEEDING IS HIS NORMAL DIET AND PATIENT GETS AGGRAVATED WITH BEING POKED. ASKED IN ROUNDS IF WE CAN STOP CHECKING, ORDER IS DCD
--- NOTE | 2019-01-21 12:54 | NUR ---
patient refusing PT, education provided on importance, PT at the bedside saying they will check back
[2019-01-21] MEDS: acetaZOLAMIDE IV 500mg inj IV SCH ×2 (15:48→22:04)
[2019-01-22] VITALS (24 sets, daily range): BP systolic 91–142; BP diastolic 58–92
[2019-01-22] MEDS: midodrine 5mg tablet PEG SCH ×3 (00:49→16:00)
[2019-01-22] MEDS: ipratropium/albuterol 3ml nebule NEB SCH ×4 (03:40→19:58)
[2019-01-22 06:14] LABS: BASOPHILS % (AUTO) 0.4 % (0-1); EOSINOPHILS % (AUTO) 0.1 % (0-6); HEMATOCRIT 38.9 % (42.0-52.0); HEMOGLOBIN 13.2 g/dl (14.0-17.9); LYMPHOCYTES # (AUTO) 0.3 X10'3 (1.1-4.8); MEAN CORPUSCULAR HEMOGLOBIN 33.3 PG (27.0-31.0); MEAN CORPUSCULAR VOLUME 97.8 FL (78-98); MEAN PLATELET VOLUME 8.7 FL (7.4-10.4); MONOCYTES % (AUTO) 9.6 % (2-12); NEUTROPHILS # (AUTO) 9.5 X10'3 (1.8-7.7); NEUTROPHILS % (AUTO) 86.9 % (42-75); PLATELET COUNT 368 X10'3 (140-440); RED BLOOD COUNT 3.97 X10'6 (4.70-6.10); RED CELL DISTRIBUTION WIDTH 14.2 % (11.5-14.5); WHITE BLOOD COUNT 10.9 X10'3 (4.5-11.0)
--- NOTE | 2019-01-22 06:45 | NUR ---
Patient in room CICU 2010. I have received report from Mac RN and had the opportunity to ask questions and assume patient care.
[2019-01-22 06:51] LABS: ALANINE AMINOTRANSFERASE 62 U/L (12-78); ALBUMIN 2.4 G/DL (3.4-5.0); ALBUMIN/GLOBULIN RATIO 0.6 (1.1-1.5); ALKALINE PHOSPHATASE 112 IU/L (46-116); ANION GAP -1 (8-16); ASPARTATE AMINO TRANSFERASE 36 U/L (10-37); BILIRUBIN,TOTAL 0.3 MG/DL (0.1-1.0); BLOOD UREA NITROGEN 27 MG/DL (7-18); BUN/CREATININE RATIO 39.7 (5.4-32.0); CALCIUM 9.2 MG/DL (8.5-10.1); CHLORIDE 94 MMOL/L (99-107); CREATININE 0.68 MG/DL (0.60-1.10); GLUCOSE 113 MG/DL (70-104); MAGNESIUM 1.9 MG/DL (1.5-2.4); PHOSPHORUS 3.1 MG/DL (2.3-4.5); POTASSIUM 4.3 MMOL/L (3.5-5.1); SODIUM 133 MMOL/L (135-145); TOTAL CARBON DIOXIDE 39.5 MMOL/L (24-32); TOTAL PROTEIN 6.6 G/DL (6.4-8.2); eGFR > 90 ML/MIN
[2019-01-22] MEDS: sennosides/docusate sodium tablet PEG SCH ×2 (08:00→21:02)
[2019-01-22] MEDS: lactulose 20gm/30ml cup PEG SCH (08:00)
[2019-01-22] MEDS: venlafaxine 25mg tablet PEG SCH ×2 (08:16→21:02)
[2019-01-22] MEDS: levoTHYROXINE 25mcg tablet PEG SCH (08:16)
[2019-01-22] MEDS: lactobacillus rhamnosus 10,000 MMU CELLS/CAPSULE PEG SCH ×2 (08:16→21:02)
[2019-01-22] MEDS: predniSONE 20 mg tablet PEG SCH (08:16)
[2019-01-22] MEDS: heparin, porcine 5000 units/ml vial SQ SCH ×2 (08:17→21:02)
[2019-01-22] MEDS: pantoprazole 40 MG vial IV SCH (08:17)
--- NOTE | 2019-01-22 16:39 | NUR ---
Verified, signed, and applied limited wristband to pt. Verified and initialed with Liat IYER.
[2019-01-22 18:05] LABS: ABG BASE EXCESS 10.7 mmol/L (-2.0-3.0); ABG HCO3 41.1 mmol/L (22.0-26.0); ABG OXYGEN SATURATION 93.7 % (95-98); ABG PCO2 (T) 85.5 mmHg (35.0-48.0); ABG PO2 (T) 71.4 mmHg (83-108); ALLEN'S TEST Positive; FCOHb 0.1 % (0.5-1.5); FMetHb 0.1 % (0.3-1.12); FO2Hb 93.5 % (94-100); MINUTE VOLUME 15 L/min; RESPIRATORY RATE 23 b/min; TIDAL VOLUME 583 mL; TOTAL HEMOGLOBIN 14.7 G/dl (14.0-18.0)
--- NOTE | 2019-01-22 18:53 | NUR ---
Patient in room CICU 2010. I have received report from Nelida IYER and had the opportunity to ask questions and assume patient care. Patient in room resting comfortably on bipap sating 88-90%, vital signs stable will continue to monitor
[2019-01-23] VITALS (24 sets, daily range): BP systolic 91–161; BP diastolic 56–87
[2019-01-23] MEDS: midodrine 5mg tablet PEG SCH ×4 (00:09→15:01)
[2019-01-23] MEDS: ipratropium/albuterol 3ml nebule NEB SCH ×4 (02:10→20:22)
--- NOTE | 2019-01-23 06:34 | NUR ---
Problems reprioritized. Patient report given, questions answered & plan of care reviewed with Filemon IYER.
[2019-01-23] MEDS: predniSONE 20 mg tablet PEG SCH (07:54)
[2019-01-23] MEDS: levoTHYROXINE 25mcg tablet PEG SCH (07:54)
[2019-01-23] MEDS: lactulose 20gm/30ml cup PEG SCH (07:55)
[2019-01-23] MEDS: venlafaxine 25mg tablet PEG SCH ×3 (07:55→20:00)
[2019-01-23] MEDS: sennosides/docusate sodium tablet PEG SCH ×3 (07:55→20:00)
[2019-01-23] MEDS: heparin, porcine 5000 units/ml vial SQ SCH ×3 (07:55→20:00)
[2019-01-23] MEDS: lactobacillus rhamnosus 10,000 MMU CELLS/CAPSULE PEG SCH ×3 (07:55→20:00)
[2019-01-23] MEDS: pantoprazole 40 MG vial IV SCH (07:55)
--- NOTE | 2019-01-23 09:37 | NUR ---
Patient refusing care does not want to be touched or turned just wants to be left alone. Patient wants to discuss with his about comfort care.
--- NOTE | 2019-01-23 11:41 | NUR ---
Dr. Bauer discussed comfort care with family due to patients refusal to take medications. wanted to try to bring family in to try to convince patient to fight on and to not give up. She said she will make a decision tomorrow.
--- NOTE | 2019-01-23 12:51 | NUR ---
Reassessment: Pt tolerating PEG feeds at goal w/ 0 residuals. LBM 5/3 on senna and lactulose held today. No edema/wounds present. Per MD note pt AOx2 and possibly considering comfort care but declines though made limited code. Will monitor for changes in code status. Recommendations: 1) Continuous TF via PEG using Jevity 1.2 with goal rate of 85 mL/hr will provide total volume of 2040 ml, 2448 cals, 113 g protein, 1646 ml water. 2) 100 mL water flush q 4 hours 3) Prealbumin q /; daily weights 4) monitor for changes in code status Addendum: 01/23/19 at [address] Amended: Links added.
--- NOTE | 2019-01-23 16:37 | NUR ---
refusing care Even with family in the room patient is refusing care and does not want to be bothered for anything. Patient has started to ignore his visitors and does not want to talk. and 2 sisters at bedside leaning toward comfort care will sleep on it and talk with the doctor in the morning.
--- NOTE | 2019-01-23 18:30 | NUR ---
Patient in room CICU 2010. I have received report from Filemon IYER and had the opportunity to ask questions and assume patient care. Patient resting in bed with family and friends bedside. vital signs stable will continue to monitor
--- NOTE | 2019-01-23 19:10 | NUR ---
Patient refused to let me turn him and reposition him in bed, explained to him the importance of turning to protect his skin, he mouthed to me no and swatted at my hand. vital sign stable will continue to monitor.
--- NOTE | 2019-01-23 20:15 | NUR ---
patient refused his 1999 meds, said he is done and motioned with his hand to slitting his throat, and his best friend tried to convince him take his meds, kept mouthing no and motioning with his hand. medications non administered with note of patient refusal. vital signs stable will continue to monitor
--- NOTE | 2019-01-23 21:12 | NUR ---
patient again refused to let me turn and reposition him, explained the importance of turning him to maintain his skin integrity, said no and slammed hand on bed. vital signs stable will continue to monitor
--- NOTE | 2019-01-23 21:45 | NUR ---
patient pulled off bipap, would not allow me to put it back on said he is "done and wants to " he did allow me to place the nasal cannula on, asked if there was anything i could do for him, he sated " no just let me " vital signs stable maintaining sats of of 96-98% on 3l nasal cannula, will continue to monitor
--- NOTE | 2019-01-23 23:15 | NUR ---
patient still refusing to be turned, again educated him on the importance of repositioning him, vital signs stable will continue to monitor
[2019-01-24] VITALS (15 sets, daily range): BP systolic 102–134; BP diastolic 60–86
--- NOTE | 2019-01-24 00:19 | NUR ---
patient refused his 0000 dose of midodrine, stated "leave me alone i want to " blood pressure stable sbp 125 will continue to monitor
--- NOTE | 2019-01-24 01:10 | NUR ---
pt still refusing to be turned
[2019-01-24] MEDS: ipratropium/albuterol 3ml nebule NEB SCH ×2 (02:24→09:00)
[2019-01-24 05:16] LABS: BASOPHILS # (AUTO) 0.1 X10'3 (0-0.2); BASOPHILS % (AUTO) 0.5 % (0-1); EOSINOPHILS % (AUTO) 0.1 % (0-6); HEMOGLOBIN 13.7 g/dl (14.0-17.9); LYMPHOCYTES # (AUTO) 0.4 X10'3 (1.1-4.8); LYMPHOCYTES % (AUTO) 3.8 % (21-51); MEAN CORPUSCULAR HEMOGLOBIN 32.7 PG (27.0-31.0); MEAN CORPUSCULAR HGB CONC 33.4 g/dL (33.0-36.5); MEAN CORPUSCULAR VOLUME 97.7 FL (78-98); MEAN PLATELET VOLUME 8.5 FL (7.4-10.4); MONOCYTES % (AUTO) 8.9 % (2-12); NEUTROPHILS # (AUTO) 9.3 X10'3 (1.8-7.7); NEUTROPHILS % (AUTO) 86.7 % (42-75); PLATELET COUNT 361 X10'3 (140-440); RED BLOOD COUNT 4.19 X10'6 (4.70-6.10); WHITE BLOOD COUNT 10.7 X10'3 (4.5-11.0)
[2019-01-24 05:42] LABS: ALANINE AMINOTRANSFERASE 78 U/L (12-78); ALBUMIN 2.3 G/DL (3.4-5.0); ALBUMIN/GLOBULIN RATIO 0.5 (1.1-1.5); ALKALINE PHOSPHATASE 125 IU/L (46-116); ANION GAP -1 (8-16); ASPARTATE AMINO TRANSFERASE 42 U/L (10-37); BILIRUBIN,TOTAL 0.4 MG/DL (0.1-1.0); BLOOD UREA NITROGEN 36 MG/DL (7-18); BUN/CREATININE RATIO 50.7 (5.4-32.0); CALCIUM 9.9 MG/DL (8.5-10.1); CHLORIDE 98 MMOL/L (99-107); CREATININE 0.71 MG/DL (0.60-1.10); GLUCOSE 111 MG/DL (70-104); MAGNESIUM 2.1 MG/DL (1.5-2.4); POTASSIUM 5.2 MMOL/L (3.5-5.1); PREALBUMIN 18.6 MG/DL (19-36); SODIUM 138 MMOL/L (135-145); eGFR > 90 ML/MIN
--- NOTE | 2019-01-24 06:41 | NUR ---
Patient in room CICU 2010. I have received report from Jia IYER and had the opportunity to ask questions and assume patient care.
--- NOTE | 2019-01-24 07:14 | NUR ---
Patient is alert and oriented times four. He states that he does not want any life support, no compressions, no meds, no intubation. He wishes to be done. He was very clear on this. He stated "no life support." When I stated that I would work on getting this changed in the computer, he grabbed my hand and stated "thank you". Voicemail left for DUARTE Castillo.
[2019-01-24] MEDS: lactulose 20gm/30ml cup PEG SCH (08:00)
[2019-01-24] MEDS: midodrine 5mg tablet PEG SCH ×2 (08:00)
[2019-01-24] MEDS: sennosides/docusate sodium tablet PEG SCH (08:00)
[2019-01-24] MEDS: heparin, porcine 5000 units/ml vial SQ SCH (08:00)
[2019-01-24] MEDS: levoTHYROXINE 25mcg tablet PEG SCH (08:00)
[2019-01-24] MEDS: lactobacillus rhamnosus 10,000 MMU CELLS/CAPSULE PEG SCH (08:00)
[2019-01-24] MEDS: venlafaxine 25mg tablet PEG SCH (08:00)
[2019-01-24] MEDS: pantoprazole 40 MG vial IV SCH (08:00)
--- NOTE | 2019-01-24 08:03 | NUR ---
Noticed brown discharge/fluid around patient's peg tube site. Patient refusing to have site cleaned up at this time.
[2019-01-24] MEDS: predniSONE 20 mg tablet PEG SCH (08:30)
--- NOTE | 2019-01-24 08:30 | NUR ---
Dr Clemens at bedside. Notified Dr Lowery that the patient wishes to be made DNR and that he does not want any life saving measures. Notified Dr Lowery that patient is refusing all treatments, medications, and repositioning. Also made him aware of the peg tube drainage.
--- NOTE | 2019-01-24 11:15 | NUR ---
Following rounds, Dr Clemens met with patient's and sisters at the bedside to discuss the patient's wishes, and to introduce comfort care options. He stated he would give the family time to discuss, and that he would be back. Shortly after, the family called RN back into the room and stated that they discussed it with the patient, and they agree with the patient's wishes to be DNR with comfort care measures. RN called Dr Clemens and notified him of the patient's and family's wishes, and he stated to initiate the comfort care pathway. Orders received, and code status changed to DNR with comfort care.
[2019-01-24] MEDS ORDERED: morphine 2 MG/ML inj. syringe IV PRN (11:25)
[2019-01-24] MEDS ORDERED: LORazepam 2 mg/ml vial IV PRN (11:25)
--- NOTE | 2019-01-24 11:57 | NUR ---
Pt refusing meds/TF/care; has been made DNR w/ comfort care. LB 01/21. Will continue to follow per protocol. Rec: 1. routine bowel care Addendum: 01/24/19 at [address] Amended: Links added.
--- NOTE | 2019-01-24 13:48 | NUR ---
Attempted to call [facility] to notify them that patient is now DNR with comfort care. The lady on the phone stated to "call back at the time of cardiac ". I told her that I was instructed to notify the donor network with this code status change, but she said they only evaluate patients that are "on a ventilator" or "have reached cardiac ".
--- NOTE | 2019-01-24 17:03 | NUR ---
Problems reprioritized. Patient report given, questions answered & plan of care reviewed with Lesley IYER.
--- NOTE | 2019-01-24 17:48 | NUR ---
Transferred patient to room 4007 with all belongings, and sisters at bedside. Vital signs stable at the time of transfer.
--- NOTE | 2019-01-24 17:50 | NUR ---
Received patient to room 4007. A/O x4. Position for comfort. Turned for skin check, ariana care done. Oriented to room and floor.
--- NOTE | 2019-01-24 18:30 | NUR ---
REPORT REC'D FROM SHIREEN TAMAYO.
--- NOTE | 2019-01-24 18:44 | NUR ---
PT FAMILY EXPRESSED TO RN THAT THEY MIGHT BE INTERESTED IN "GOING HOME" WITH HOSPICE. THEY HAVENT MADE A DECISION BUT WE WILL F/U 01/25/19.
--- NOTE | 2019-01-24 18:52 | NUR ---
VS WILL BE TAKEN ONLY ONCE DAILY PER FAMILY REQUEST.
--- NOTE | 2019-01-24 23:07 | NUR ---
SISTER IS AT BEDSIDE, PT IS MOTTLING UP TO HIS KNEES AND HANDS/FINGERTIPS ARE BLUE. WILL CONTINUE TO MONITOR. CAME TO [facility], IS UNABLE TO STAY AT BEDSIDE. RN SPENT APPROX. 30MINS COUNSELING ON EXPECTATIONS. THERE IS DEFINITE UNDERLYING FAMILY DYNAMICS.
--- NOTE | 2019-01-25 02:00 | NUR ---
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
--- NOTE | 2019-01-25 02:14 | NUR ---
PT AT 0130 , ASYSTOLE STRIP RUN BY TELEMETRY. SISTER PIEDAD WAS AT BEDSIDE DURING AND AFTER PASSING. PROPOSAL COORDINATOR [employer] NOTIFIED, FAMILY NOTIFIED, [employer] NET[employer] NOTIFIED, AND MORTUARY NOTIFIED AWAITING CALLBACK. POST MORTUM CARE PERFORMED.
--- NOTE | 2019-01-25 02:30 | NUR ---
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
--- NOTE | 2019-01-25 05:10 | NUR ---
MR SCALES HAS BEEN TRANSPORTED BY [facility] AND TWO ATTENDANTS AT 0500.
== END 2019-01-25 04:40 | disposition expired | DRG 870 ==
LOC: ER 22:54 → CICU 2S 01-08 00:49 → CMPBEDREQ 01-08 03:05 → ORTHO 4S 01-24 17:45
PROVIDERS: ATTEND Internal Medicine Critical Care Medicine
PROC: 5A1955Z Respiratory Ventilation, Greater than 96 Consecutive Hours (ICD-10-PCS; principal; 2019-01-08)
PROC: 0BH17EZ Insertion of Endotracheal Airway into Trachea, Via Natural or Artificial Opening (ICD-10-PCS; 2019-01-08)
PROC: 02HV33Z Insertion of Infusion Device into Superior Vena Cava, Percutaneous Approach (ICD-10-PCS; 2019-01-08)
PROC: B32T1ZZ Computerized Tomography (CT Scan) of Left Pulmonary Artery using Low Osmolar Contrast (ICD-10-PCS; 2019-01-11)
PROC: B3201ZZ Computerized Tomography (CT Scan) of Thoracic Aorta using Low Osmolar Contrast (ICD-10-PCS; 2019-01-11)
PROC: B32S1ZZ Computerized Tomography (CT Scan) of Right Pulmonary Artery using Low Osmolar Contrast (ICD-10-PCS; 2019-01-11)
PROC: BW211ZZ Computerized Tomography (CT Scan) of Abdomen and Pelvis using Low Osmolar Contrast (ICD-10-PCS; 2019-01-11)
PROC: 5A09357 Assistance with Respiratory Ventilation, Less than 24 Consecutive Hours, Continuous Positive Airway Pressure (ICD-10-PCS; 2019-01-13)
PROC: 5A09357 Assistance with Respiratory Ventilation, Less than 24 Consecutive Hours, Continuous Positive Airway Pressure (ICD-10-PCS; 2019-01-14)
PROC: 5A09357 Assistance with Respiratory Ventilation, Less than 24 Consecutive Hours, Continuous Positive Airway Pressure (ICD-10-PCS; 2019-01-16)
PROC: 5A09357 Assistance with Respiratory Ventilation, Less than 24 Consecutive Hours, Continuous Positive Airway Pressure (ICD-10-PCS; 2019-01-19)
PROC: 5A09357 Assistance with Respiratory Ventilation, Less than 24 Consecutive Hours, Continuous Positive Airway Pressure (ICD-10-PCS; 2019-01-20)
PROC: 5A09457 Assistance with Respiratory Ventilation, 24-96 Consecutive Hours, Continuous Positive Airway Pressure (ICD-10-PCS; 2019-01-21)
DX: A41.9 Sepsis, unspecified organism (principal); R65.21 Severe sepsis with septic shock; J69.0 Pneumonitis due to inhalation of food and vomit; J96.22 Acute and chronic respiratory failure with hypercapnia; J96.21 Acute and chronic respiratory failure with hypoxia; J44.1 Chronic obstructive pulmonary disease with (acute) exacerbation; E87.3 Alkalosis; E87.2 Acidosis; F40.240 Claustrophobia; K21.9 Gastro-esophageal reflux disease without esophagitis; F32.9 Major depressive disorder, single episode, unspecified; R62.7 Adult failure to thrive; F41.9 Anxiety disorder, unspecified; K59.09 Other constipation; R13.10 Dysphagia, unspecified; Z51.5 Encounter for palliative care; Z82.0 Family history of epilepsy and other diseases of the nervous system; Z82.49 Family history of ischemic heart disease and other diseases of the circulatory system; Z85.118 Personal history of other malignant neoplasm of bronchus and lung; Z85.819 Personal history of malignant neoplasm of unspecified site of lip, oral cavity, and pharynx; Z86.73 Personal history of transient ischemic attack (TIA), and cerebral infarction without residual deficits; Z87.891 Personal history of nicotine dependence; Z90.49 Acquired absence of other specified parts of digestive tract; Z99.81 Dependence on supplemental oxygen; Z79.899 Other long term (current) drug therapy; Z79.82 Long term (current) use of aspirin; Z68.24 Body mass index [BMI] 24.0-24.9, adult
CPT/HCPCS: 31500; 36415; 36556; 36600; 71045; 71275; 74177; 80053; 81001; 82803; 82810; 82948; 83605; 83735; 83880; 84100; 84132; 84134; 84145; 84443; 84484; 85018; 85025; 85610; 85730; 87040; 87070; 92508; 92616; 93005; 94002; 94003; 94640; 94660; 94667; 94668; 94760; 96365; 96366; 96368; 96375; 97110; 97116; 97162; 97530; 99291; C9113; G0378; J0456; J0696; J1120; J1644; J1940; J2250; J2270; J2405; J2543; J2704; J2920; J2930; J3370; J3480; J3490; J7030; J7060; J7512; Q9967